=== PATIENT | male | born 1960 | race Caucasian/White ===

== ENCOUNTER 2021-10-25 13:37 | Observation (INO) | payer MEDICAID, SELFPAY ==
[2021-10-25] VITALS (12 sets, daily range): BP systolic 123–159; BP diastolic 78–102; PULSE 47–62; RESP 15–20; TEMP 36.1–37; O2SAT 98–100; BMI 30.9; BMI 29.2
--- NOTE | 2021-10-25 13:44 | EKG12_ITS ---
Test Reason : Blood Pressure : / mmHG Vent. Rate : 057 BPM Atrial Rate : 057 BPM P-R Int : 176 ms QRS Dur : 110 ms QT Int : 436 ms P-R-T Axes : 022 018 054 degrees QTc Int : 424 ms Sinus bradycardia Otherwise normal ECG Confirmed by ALEJANDRO HEAD, JD ([id number]), continuity editor SHAHID RENEE ([id number]) on 10/29/2021 8:00:59 AM Referred By: Confirmed By:JD ALLEN MD
--- NOTE | 2021-10-25 13:44 | CT_ITS ---
We are attempting to reach an attending provider to discuss findings. An addendum with communication details will be sent when the communication is complete. STUDY: CT HEAD STROKE PROTOCOL W/O CONTRAST INJECTION REASON FOR EXAM: Male, 60 years old. Neuro deficit, acute, stroke suspected RADIATION DOSAGE (If Supplied By Facility): CTDIvol = ( ) mGy, DLP = ( ) mGycm TECHNIQUE: Transaxial CT imaging of the brain was performed without administration of intravenous contrast material. Individualized dose optimization techniques were used for this CT. COMPARISON: No relevant priors. FINDINGS: Normal soft tissue structures. There is hyperostosis frontalis internus. There is mild cerebral atrophy with widening of the extra-axial spaces and ventricular dilatation. There are areas of decreased attenuation within the white matter tracts of the supratentorial brain, consistent with microvascular disease changes. Normal basal ganglia and thalami. Normal brainstem. Normal cerebellum. There is no intracranial hemorrhage. There are no findings of an acute ischemic infarction. Normal visualized paranasal sinuses. ASPECT score: CT/STROKE Brain/Head without Cont IMPRESSION: Chronic involutional changes of the brain. Electronically Signed: Ruben Dan MD at 13:59 EDT ,
--- NOTE | 2021-10-25 13:44 | RAD_ITS ---
STUDY: X-RAY CHEST REASON FOR EXAM: Male, 60 years old. Neuro deficit, acute, stroke suspected TECHNIQUE: Single AP portable view of the chest. COMPARISON: None. FINDINGS: Focal alveolar opacity in lower right lung worrisome for pneumonia. There is no demonstrated pleural abnormality. Normal size heart. Normal mediastinum and latonya. Normal visualized pulmonary arteries. Normal visualized aortic arch and descending thoracic aorta. Normal visualized thoracic spine. Normal visualized ribs, clavicles, and shoulders. There is no demonstrated abnormality of the visualized soft tissue structures of the upper abdomen. RAD/Chest 1 View IMPRESSION: Focal right lower lobe pneumonia. Electronically Signed: Ruben Dan MD at 14:47 EDT ,
--- NOTE | 2021-10-25 13:45 | ED.RN ---
Per Dr Haywood pt is not a candidate for TPA or any other interventions as it has been greater than 24 hours.
--- NOTE | 2021-10-25 13:56 | ED.VIS.STROK ---
HPI History of Present Illness Chief Complaint: Neuro S/Sx Narrative Narrative: Patient presents with 24 hours or more of generalized weakness but also worse on the right side where he has had a prior right-sided stroke. He was also found to have a right-sided facial droop, he tells me that he normally does not have a facial droop. No reported fevers or chills. He is arrives from an ECF. He is denying any chest pain. No shortness of breath. He is denying any confusion. [facility] Medical History (Updated 10/25/21 @ 14:[address] Mac Haywood MD) Diabetes High cholesterol History of stroke Hx of bipolar disorder Hypertension Schizophrenia Allergy/AdvReac Type Severity Reaction Status Date / Time No Known Allergies Allergy Verified 10/25/21 13:58 Surgical History History of ankle surgery Social History Smoking Status: Never smoker ROS ROS ED ROS Narrative Past medical history: Reviewed in his [employer] paperwork, he has not been in our computer system in the past. Medications: Reviewed and ECF paper Social history: Noncontributory Review of systems: All systems negative except as indicated General: No fever. Some generalized weakness Eyes: No visual changes ENT: No upper airway congestion, normal voice Neck: No neck pain Cardiovascular: No chest pain Respiratory: No shortness of breath or cough Gastrointestinal: No abdominal pain, nausea vomiting or diarrhea Genitourinary: No dysuria Musculoskeletal: Denies myalgias no difficulty with ambulation Skin: No rash Neurological: As in HPI Psych: No recent behavioral changes Hematologic: No easy bleeding or easy bruising EXAM Physical Exam Narrative Exam Narrative: Physical exam General: Patient appears chronically ill Head: Normocephalic, Atraumatic Eyes: Conjunctiva not pale ENT: Slightly dry mucous membranes Neck: Supple, Nontender, No lymphadenopathy Cardiovascular: Regular rate, Regular rhythm Respiratory: No distress, CTA bilaterally Abdomen: Soft, Nontender, Nondistended Back: Nontender, Normal Inspection. Negative for: CVA tenderness Extremities: Nontender, No edema Skin: Normal color, No rash Neurological: Alert, he is oriented x3 and follows directions. Otherwise see NIH stroke scale below. Psychological: Normal affect Const Vital Signs: 10/25/21 13:40 10/25/21 13:49 10/25/21 14:14 Temperature 98.6 F Temperature Source Oral Pulse Rate 62 52 L Respiratory Rate 16 Blood Pressure 156/78 H 141/78 H Blood Pressure Mean 104 99 Pulse Ox 98 99 100 Oxygen Delivery Method Room Air Room Air 10/25/21 14:39 Temperature Temperature Source Pulse Rate 49 L Respiratory Rate 16 Blood Pressure 136/94 H Blood Pressure Mean 108 Pulse Ox 100 Oxygen Delivery Method STROKE Vital Signs/Narrative: Vital Signs Temp Pulse Resp BP Pulse Ox 10/25/21 14:39 49 L 16 136/94 H 100 10/25/21 14:14 52 L 141/78 H 100 10/25/21 13:49 99 10/25/21 13:40 98.6 F 62 16 156/78 H 98 NIHSS Initial: 1a Level of Consciousness: 0 1b LOC Questions (Score 2 if aphasic/stupor): 0 1c LOC Commands (Only score 1st attempt): 0 2 Best Gaze (If aphasic, use reflexive mvmts.): 0 3 Visual: 0 4 Facial Palsy: 2 5 Motor Arm Right (UN = amputation/fusion): 1 5 Motor Arm Left: 1 6 Motor Leg Right: 2 6 Motor Leg Left: 1 7 Limb ataxia (Only + if out of proportion): 0 8 Sensory (Aphasia/stupor=0 or 1, coma=2): 0 9 Best Language: 0 10 Dysarthria (mute, coma=2, intubated=UN): 1 11 Extinction and Inattention (only scored if +): 0 Total Score: 8 MDM [facility] Lab Data Labs: Laboratory Results - last 24 hr 10/25/21 10/25/21 10/25/21 13:45 13:45 13:45 WBC 3.1 L RBC 4.10 L Hgb 12.9 L Hct 38.8 L MCV 94.6 H MCH 31.5 MCHC 33.2 RDW Std Deviation 45.4 H RDW Coeff of Joshua 13.1 Plt Count 102 L MPV 10.4 Immature Gran % (Auto) 0.300 Neut % (Auto) 45.3 L Lymph % (Auto) 41.0 [place] % (Auto) 11.4 H Eos % (Auto) 1.3 Baso % (Auto) 0.7 Absolute Neuts (auto) 1.4 L Absolute Lymphs (auto) 1.26 Nucleated RBC % 0 PT 15.0 H INR 1.2 APTT 32.5 Sodium 138 Potassium 4.0 Chloride 107 Carbon Dioxide 27.0 Anion Gap 4 L BUN 17 Creatinine 0.94 Estim Creat Clear Calc 95.95 Est GFR (MDRD) Af Amer 104 Est GFR (MDRD) Non-Af 86 BUN/Creatinine Ratio 18.0 Glucose 93 Calcium 9.5 Troponin I High Sens 7 Radiography Diagnostic Testing: Clinical Impression(s) from Imaging Studies Brain CT 10/25/21 13:44 IMPRESSION: Chronic involutional changes of the brain. Electronically Signed: Ruben Dan MD at 13:59 EDT , ADDENDUM: 10/25/21 1418 IMPRESSION: Chronic involutional changes of the brain. N.B. : The above Results were Read Back by Ruben Dan MD to Mac Haywood MD, and understanding confirmed on 10/25/2021 14:11:44 (ET). Electronically Signed: Ruben Dan MD at 13:59 EDT , EKG Initial EKG: Comments: Sinus rhythm with a rate of 57. Normal GA and QTc intervals. No ischemic changes seen. Interpreted by emergency Dr. Treatment and Re-Evaluation Narrative: Patient continues have no neurological symptoms because his symptoms have been greater than 24 hours he does not meet criteria for either endovascular therapy or tPA. Therefore a CT angiogram was not done in the emergency department. Patient will need an MRI and patient and further evaluation and treatment. He has remained hemodynamically stable with a slightly elevated blood pressure but it is acceptable given the stroke condition. Discharge Plan Triage Chief Complaint: Neuro S/Sx ED Provider: Mac Haywood Dx/Rx/DC Orders Clinical Impression: CVA (cerebral vascular accident), Facial droop Primary Care Provider: Tevin Prather Referrals: Tevin Prather MD [Primary Care Provider] - Disposition Disposition: Acute Care Hospital [facility]
[2021-10-25 14:04] LABS: Absolute Lymphocyte Count 1.26 X10^3/uL (0.83-4.51); Absolute Neutrophil Count 1.4 X10^3/uL (2.0-7.7); Basophil# 0.02 X10^3/uL; Basophil% 0.7 % (0-1); Eosinophil# 0.04 X10^3/uL; Eosinophils% 1.3 % (0-5); Hematocrit 38.8 % (40-54); Hemoglobin 12.9 g/dL (13.0-16.5); Lymphocyte # 1.26 X10^3/ul (0.83-4.51); Mean Corp Hgb Conc 33.2 g/dL (32-36); Mean Corpuscular Hgb 31.5 pg (27.0-32.0); Mean Corpuscular Volume 94.6 fL (80-94); Mean Platelet Vol. 10.4 fl (6.2-12.0); Monocyte# 0.35 X10^3/uL; Monocyte% 11.4 % (0-10); NRBC Flagged by Analyzer 0 % (0-5); Neutrophil # 1.39 X10^3/uL (2.7-7.7); Neutrophil % 45.3 % (47-70); Platelet Count 102 K/mm3 (150-450); RBC Distribution Width CV 13.1 % (11.6-14.6); RBC Distribution Width SD 45.4 fl (35.1-43.9); White Blood Count 3.1 K/mm3 (4.4-11.0)
[2021-10-25 14:14] LABS: International Normalized Ratio 1.2
[2021-10-25 14:15] LABS: Partial Thromboplast Time 32.5 Seconds (24.1-36.2)
[2021-10-25 14:18] LABS: Anion Gap 4 (5-15); BUN 17 mg/dL (7-18); Calcium,Total 9.5 mg/dL (8.5-10.1); Chloride 107 mmol/L (98-107); Creatinine, Serum 0.94 mg/dL (0.70-1.30); EST Glomerular Filtration Rate 86 mL/min (>60); Est Glom Filt Rate - Afr Amer 104 mL/min (>60); Estimated Creatinine Clearance 95.95 ml/min; Glucose 93 mg/dL (74-106); Sodium Level 138 mmol/L (136-145); Troponin-I HS 7 pg/mL (3.0-78.0)
--- NOTE | 2021-10-25 14:20 | CHAPLAIN ---
Type of Pastoral Visit ___ Initial Visit ___ Follow-up Visit ___ On-call Visit ___ General Patient Visit ___ Spiritual Assessment ___ Family Conference ___ Bereavement _x__ Rapid Response ___ Code Blue ___ Other (describe below) Pastoral Care Referral From ___ Patient ___ Family ___ Nurse ___ Physician ___ Consumer Attorney ___ Circular Gang Saw Operator _x__ Other (describe below) Sacrament/Intervention ___ Active listening ___ Anointing ___ Adventism ___ Bereavement ___ Communion ___ Dorcas exploration ___ ___ Life review ___ Prayer ___ Reconciliation ___ Sacrament of Sick _x__ Supportive presence ___ Wedding ___ Other (describe below) Pastoral Comments came to ED for stroke alert and the arrival of patient by squad; pt is from an [facility] and does not have family available or coming to the hospital; pt was treated by medical team; presence for support but no other interventions at this time
--- NOTE | 2021-10-25 14:57 | HP.PCM.HOS_ITS ---
HPI - General General Date of Admission: 10/25/21 Date of Service: 10/25/21 Chief Complaint: Right sided weakness - 2 days HPI Narrative SANTOS WOODS, is a 60 M who presents with the above. Patient has a PMHx of CVA 2-3 years ago, with minimal right sided weakness, hypertension, hyperlipidemia, seizure disorder, schizoaffective disorder, resident in an assisted living facility who comes with right sided weakness. He admits to slurred speech and facial droop. Denies any numbness or tingling. Vitals in the ED showed BP 156/78, HR 62, RR 16, Temp 98.6F, Spo2 98%. WBC 3.1, Hb 12.9, Plt 102, INR 1.2. BMP was unremarkable. CT brain showed chronic involutional changes. Chest X-ray showed focal right lower lobe pneumonia. [facility] Medical History Diabetes High cholesterol History of stroke Hx of bipolar disorder Hypertension Schizophrenia Home Medications acetaminophen 650 mg tablet,extended release (Arthritis Pain Relief (acetaminophen) ER) 1,300 mg PO BID PAIN 10/25/21 [History Last Taken 10/25/21] amlodipine 5 mg tablet 5 mg PO DAILY BP 10/25/21 [History Last Taken 10/25/21] apixaban 5 mg tablet (Eliquis) 5 mg PO BID BLOOD THINNER 10/25/21 [History Last Taken 10/25/21] atorvastatin 40 mg tablet 40 mg PO QHS CHOLESTEROL 10/25/21 [History Last Taken 10/24/21] benztropine 1 mg tablet 1 mg PO BID MOOD 10/25/21 [History Last Taken 10/25/21] cholecalciferol (vitamin D3) 50 mcg (2,000 unit) tablet 50 mcg PO DAILY SUPPLEMENT 10/25/21 [History Last Taken 10/25/21] citalopram 20 mg tablet 20 mg PO QHS DEPRESSION 10/25/21 [History Last Taken 10/24/21] divalproex 500 mg tablet,extended release 24 hr 1,000 mg PO QHS SEIZURES 10/25/21 [History Last Taken 10/24/21] divalproex 500 mg tablet,extended release 24 hr 500 mg PO DAILY SEIZURES 10/25/21 [History Last Taken 10/25/21] docusate sodium 100 mg capsule 100 mg PO BID STOOL SOFTNER 10/25/21 [History Last Taken 10/25/21] fenofibrate 54 mg tablet 54 mg PO DAILY CHOLESTEROL 10/25/21 [History Last Taken 10/25/21] latanoprost 0.005 % eye drops 1 drp EACH EYE QHS GLUCOMA 10/25/21 [History Last Taken 10/24/21] olanzapine 10 mg tablet 10 mg PO QHS MOOD 10/25/21 [History Last Taken 10/24/21] olanzapine 20 mg tablet 20 mg PO QHS MOOD 10/25/21 [History Last Taken 10/24/21] oxcarbazepine 300 mg tablet 300 mg PO BID SEZIURES 10/25/21 [History Last Taken 10/25/21] tamsulosin 0.4 mg capsule 0.4 mg PO QHS PROSTATE 10/25/21 [History Last Taken 10/24/21] Allergy/AdvReac Type Severity Reaction Status Date / Time No Known Allergies Allergy Verified 10/25/21 13:58 Family History Mother Heart disease Father Heart disease Surgical History History of ankle surgery Social History housing: assisted living facility Smoking Status: Never smoker alcohol intake: never substance use type: does not use ROS ROS Narrative Constitutional: Denies: Anorexia, Chills, Fever, Night Sweats, Weight Change Eyes: Denies: Blurred vision, Cataracts, Conjunctivae Inflammation, Pain, Redness, Vision Change HEENT: Denies: Difficulty Hearing, Difficulty Swallowing, Head Aches, Hearing Changes, Sinus Congestion, Sinus Drainage Cardiovascular: Denies: Chest Pain, Orthopnea, Palpitations Respiratory: Denies: Cough, Shortness of breath at rest, Sputum production Gastrointestinal: Denies: Abdominal Pain, Nausea, Vomiting Genitourinary: Denies: Dysuria Musculoskeletal: Denies: Joint Pain, Joint stiffness, Joint swelling, Joint Tenderness Skin: Denies: Rash, Wounds Neurological: See HPI Vital Signs Vital Signs Vital Signs: 10/25/21 13:40 10/25/21 13:49 10/25/21 14:14 Temperature 98.6 F Temperature Source Oral Pulse Rate 62 52 L Respiratory Rate 16 Blood Pressure 156/78 H 141/78 H Blood Pressure Mean 104 99 Pulse Ox 98 99 100 Oxygen Delivery Method Room Air Room Air 10/25/21 14:39 10/25/21 14:51 Temperature 98 F Temperature Source Temporal Pulse Rate 49 L 52 L Respiratory Rate 16 16 Blood Pressure 136/94 H 148/78 H Blood Pressure Mean 108 101 Pulse Ox 100 100 Oxygen Delivery Method Room Air Weight Weight: 109.4 kg Body Mass Index (BMI) 30.9 Physical Exam Narrative Physical exam: General: Alert, Oriented x3, cooperative, HEENT: Atraumatic Oral: Moist Mucosa Neck: Supple Lungs: Clear to auscultation Cardiovascular: HS I+II, regular, no murmurs Abdomen: Bowel Sounds Present, Soft, Non Tender Extremities: No edema Skin: No rashes, No breakdown Neurological: Slight right facial droop, slurred speech, weakness in both legs (worse in the left, chronic) Psych/Mental Status: Appropriate Results Lab / Micro Data Result Diagrams: 10/25/21 13:45 10/25/21 13:45 Labs: Laboratory Results - last 24 hr 10/25/21 13:45: WBC 3.1 L, RBC 4.10 L, Hgb 12.9 L, Hct 38.8 L, MCV 94.6 H, MCH 31.5, MCHC 33.2, RDW Std Deviation 45.4 H, RDW Coeff of Joshua 13.1, Plt Count 102 L, MPV 10.4, Immature Gran % (Auto) 0.300, Neut % (Auto) 45.3 L, Lymph % (Auto) 41.0, [place] % (Auto) 11.4 H, Eos % (Auto) 1.3, Baso % (Auto) 0.7, Absolute Neuts (auto) 1.4 L, Absolute Lymphs (auto) 1.26, Nucleated RBC % 0 10/25/21 13:45: PT 15.0 H, INR 1.2, APTT 32.5 10/25/21 13:45: Sodium 138, Potassium 4.0, Chloride 107, Carbon Dioxide 27.0, Anion Gap 4 L, BUN 17, Creatinine 0.94, Estim Creat Clear Calc 95.95, Est GFR (MDRD) Af Amer 104, Est GFR (MDRD) Non-Af 86, BUN/Creatinine Ratio 18.0, Glucose 93, Calcium 9.5, Troponin I High Sens [address] 10/25/21 13:44 IMPRESSION: Chronic involutional changes of the brain. Electronically Signed: Santos Dan MD at 13:59 EDT , ADDENDUM: 10/25/21 1418 IMPRESSION: Chronic involutional changes of the brain. N.B. : The above Results were Read Back by Santos Dan MD to Mac Haywood MD, and understanding confirmed on 10/25/2021 14:11:44 (ET). Electronically Signed: Santos Dan MD at 13:59 EDT , Chest X-Ray 10/25/21 13:44 IMPRESSION: Focal right lower lobe pneumonia. Electronically Signed: Santos Dan MD at 14:47 EDT , Assessment & Plan Assessment/Plan (1) CVA (cerebral vascular accident): PLAN: Plan 1. Acute onset of right-sided weakness/slurred speech likely secondary to TIA/CVA Patient with history of stroke Admitting NIHSS score was 3, not a TPA candidate; last known normal was 2-3 days ago dmit to PCU, monitor on telemetry, MRI of the brain, MRA of the head and neck 2D echo, lipid profile in am, HbA1c 2. Paroxysmal atrial fibrillation, in normal sinus rhythm, continue apixaban 3. Hypertension, controlled, hold amlodipine to allow for permissive hypertension 4. Seizure disorder, continue on valproic acid, oxcarbazepine 5. Hyperlipidemia, continue fenofibrate and statin 6. Schizoaffective disorder, continue benztropine, citalopram, olanzapine 7. BPH, continue on flomax 8. DVT PPx- on apixaban Charges/Coding Visit Charges OBSV E&M: 59613 Initial observation care L3
--- NOTE | 2021-10-25 15:05 | CM.ED ---
SW Note Referral Source: Stroke Alert Referral Reason: Stroke Alert SW responded to stroke alert. No family present. Patient is from SNF in [place] per staff. SW met with patient. Patient is from rest home in [place] and reports he lived there for 7 1/2 years. Patient said that he is from [facility]. Plan is for patient to be admitted to acute. SW remains available if needs arise. Plan: Acute Michelle OLSEN
[2021-10-25] MEDS: Ceftriaxone 1 GM/50 ML BAG IV ×2 (15:20→22:09)
--- NOTE | 2021-10-25 16:20 | MRI_ITS ---
rScriptor Unformatted Report Gender: Male Age: 60 years Exam: MR Brain W/O Contrast Comparison: History: neuro deficit, acute stroke suspected FINDINGS: No restricted diffusion. No evidence of acute CVA. Mild cerebral volume loss. Only slight chronic parenchymal changes on inversion recovery images The signal voids of the dural venous sinuses and major [place] of Ren vessels appear unremarkable. Slight mucosal thickening in multiple ethmoid air cells. Right nneka bullosa and left nasal septal deviation. MRI/Brain without Contrast IMPRESSION: No acute abnormality. Electronically Signed: Melissa Salmeron MD at 6:02 EDT ,
--- NOTE | 2021-10-25 16:20 | ECHOCS_ITS ---
Reason For Study: TIA/CVA Procedure This was a 2D Doppler, Color Flow transthoracic echocardiogram. The study was technically difficult. Contrast injection was performed. Exam performed portable in patient room. Left Ventricle Normal left ventricle. The estimated ejection fraction is 55-60 %. Right Ventricle Normal right ventricle. Normal systolic function. Atria Normal left atrium. Normal right atrium. Mitral Valve The mitral valve is structurally normal. No prolapse or stenosis seen. Trivial mitral valve insufficiency. Tricuspid Valve Normal tricuspid valve. Trivial tricuspid valve insufficiency. Aortic Valve Normal aortic valve. Pulmonic Valve The pulmonic valve is not well visualized. Great Vessels Normal aortic root. Pericardium/Pleural No pericardial effusion. Medication Diluted definity 2ml given slow IV push to enhance endocardial definition. Performed a rapid injection of agitated mix of 9 cc saline and 1cc air to assess for atrial septal defect. MMode/2D Measurements & Calculations SV(MOD-sp4): 138.2 ml SV(sp4-el): 138.4 ml LVAd ap4: 50.1 cm2 LVLd ap4: 10.2 cm EDV(MOD-sp4): 205.9 ml EDV(sp4-el): 207.9 ml LVAs ap4: 24.7 cm2 LVLs ap4: 7.5 cm ESV(MOD-sp4): 67.7 ml ESV(sp4-el): 69.5 ml EF(MOD-sp4): 67.1 % EF(sp4-el): 66.6 % Doppler Measurements & Calculations MV E max mikel: 55.6 cm/sec Lat Peak E' Mikel: 15.2 cm/sec Med Peak E' Mikel: 6.3 cm/sec MV A max mikel: 60.7 cm/sec E/E' lat: 3.7 E/E' med: 8.8 MV E/A: 0.92 Ao V2 max: 128.1 cm/sec LV V1 max: 124.5 cm/sec PA V2 max: 87.6 cm/sec Ao max P.6 mmHg LV V1 max P.2 mmHg ECHO/Echo Complete W/ Contrast Interpretation Summary The estimated ejection fraction is 55-60 %. Normal LV systolic function Contrast echo used Ordering Physician: Flora Mtz Referring Physician: Tevin Prather Performed By: Crys Fernandez RCS
--- NOTE | 2021-10-25 16:20 | MRI_ITS ---
EXAM: MR ANGIOGRAPHY NECK WITHOUT AND WITH INTRAVENOUS CONTRAST CLINICAL INDICATION: neuro deficit, acute stroke suspected TECHNIQUE: Routine carotid MR angiogram protocol was performed without and with intravenous contrast. 3D reconstructions were reviewed. Nascet criteria using the distal ICAs for comparison were used for evaluation of stenoses. This report was created using Nuji report generation technology. RADIATION DOSE: CTDIvol = mGy, DLP = mGy-cmContrast: 19ml Dotarem via IV COMPARISON: None. FINDINGS: RIGHT COMMON CAROTID ARTERY: Unremarkable. No occlusion or significant stenosis. No dissection. RIGHT INTERNAL CAROTID ARTERY: Unremarkable. Extracranial segment is patent with no occlusion or significant stenosis. No dissection. RIGHT EXTERNAL CAROTID ARTERY: Unremarkable. No occlusion. RIGHT VERTEBRAL ARTERY: Unremarkable. No occlusion or significant stenosis. No dissection. LEFT COMMON CAROTID ARTERY: Unremarkable. No occlusion or significant stenosis. No dissection. LEFT INTERNAL CAROTID ARTERY: Unremarkable. Extracranial segment is patent with no occlusion or significant stenosis. No dissection. LEFT EXTERNAL CAROTID ARTERY: Unremarkable. No occlusion. LEFT VERTEBRAL ARTERY: Unremarkable. No occlusion or significant stenosis. No dissection. GREAT VESSELS OF AORTIC ARCH: Unremarkable. No significant stenosis. CAROTID STENOSIS REFERENCE USING NASCET CRITERIA: % ICA stenosis = (1 - narrowest ICA diameter/diameter of distal cervical ICA) x 100. Mild - <50% stenosis. Moderate - 50-69% stenosis. Severe - 70-94% stenosis. Near occlusion - 95-99% stenosis. Occluded - 100% stenosis. MRI/MRA Neck WITH and W/O Contrast IMPRESSION: Unremarkable MRA neck. Electronically Signed: Melissa Salmeron MD at 6:06 EDT ,
--- NOTE | 2021-10-25 16:20 | MRI_ITS ---
EXAM: MR ANGIOGRAPHY HEAD WITHOUT INTRAVENOUS CONTRAST CLINICAL INDICATION: neuro deficit, acute stroke suspected TECHNIQUE: Routine [place] of Ren/brain 3D time of flight MR angiogram protocol was performed without intravenous contrast. This report was created using [employer] report Reality Digital technology. COMPARISON: None. FINDINGS: RIGHT INTERNAL CAROTID ARTERY: There is calcified plaque formation of the right cavernous carotid artery, with a mild stenosis (less than 50%). ALL ABOVE CRITERIA BY NASCET. No aneurysm. 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 There is hypoplastic development of the right A2 segments of the anterior cerebral artery. No significant stenosis at the visualized segments. Anterior communicating artery is present. No aneurysm. RIGHT MIDDLE CEREBRAL ARTERY: Unremarkable. No significant stenosis at the visualized segments. No aneurysm. RIGHT POSTERIOR CEREBRAL ARTERY: Unremarkable. No significant stenosis at the visualized segments. No aneurysm. RIGHT VERTEBRAL ARTERY: Unremarkable as visualized. No significant stenosis at the intradural/visualized segments. No aneurysm. LEFT INTERNAL CAROTID ARTERY: There is calcified plaque formation of the left cavernous carotid artery, with a mild stenosis (less than 50%). ALL ABOVE CRITERIA BY NASCET. No aneurysm. LEFT ANTERIOR CEREBRAL ARTERY: Unremarkable. No significant stenosis at the visualized segments. Anterior communicating artery is present. No aneurysm. LEFT MIDDLE CEREBRAL ARTERY: Unremarkable. No significant stenosis at the visualized segments. No aneurysm. LEFT POSTERIOR CEREBRAL ARTERY: Unremarkable. No significant stenosis at the visualized segments. No aneurysm. LEFT VERTEBRAL ARTERY: Unremarkable as visualized. No significant stenosis at the intradural/visualized segments. No aneurysm. BASILAR ARTERY: Unremarkable. No significant stenosis. No aneurysm. OTHER VASCULATURE: See above. MRI/MRA Head ONLY without Contrast IMPRESSION: 1. There is calcified plaque formation of the right cavernous carotid artery, with a mild stenosis (less than 50%). ALL ABOVE CRITERIA BY NASCET. 2. There is calcified plaque formation of the left cavernous carotid artery, with a mild stenosis (less than 50%). ALL ABOVE CRITERIA BY NASCET. 3. 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 4. There is hypoplastic development of the right A2 segments of the anterior cerebral artery. Electronically Signed: Uziel Sethi MD at 20:36 EDT ,
[2021-10-25 17:08] LABS: Hemoglobin A1c 4.9 % (3.8-5.6)
[2021-10-25] MEDS: 0.9% Normal Saline 1,000 ML 75 ML IV (17:17)
[2021-10-25 17:52] LABS: Troponin-I HS 9 pg/mL (3.0-78.0)
[2021-10-25 20:23] LABS: Troponin-I HS 14 pg/mL (3.0-78.0)
[2021-10-25] MEDS: Benztropine 2 MG Tablet 1 MG PO (22:11)
[2021-10-25] MEDS: Docusate Sodium 100 MG Capsule PO (22:13)
[2021-10-25] MEDS: APIXABAN 5 MG TABLET PO (22:14)
[2021-10-25] MEDS: Divalproex (ER) 500 MG Tablet 1000 MG PO (22:15)
[2021-10-25] MEDS: Acetaminophen 500 MG Tablet 1000 MG PO (22:17)
[2021-10-25] MEDS: Tamsulosin HCl 0.4 MG Capsule PO (22:19)
[2021-10-25] MEDS: Famotidine 20 MG Tablet PO (22:47)
[2021-10-25] MEDS: Atorvastatin Calcium 80 MG Tablet PO (22:48)
[2021-10-25] MEDS: Latanoprost 0.005% 1 Bottle 1 DRP EACH EYE (22:49)
[2021-10-25] MEDS: OXcarbazepine 300 MG Tablet PO (22:49)
[2021-10-25] MEDS: OLANZapine 10 MG Tablet 30 MG PO (22:59)
[2021-10-25] MEDS: Citalopram 20 MG Tablet PO (22:59)
[2021-10-26] VITALS (11 sets, daily range): BP systolic 120–160; BP diastolic 72–85; PULSE 47–61; RESP 14–18; TEMP 36.6–36.7; O2SAT 50–100; BMI 29.2
[2021-10-26 06:07] LABS: Absolute Lymphocyte Count 2.11 X10^3/uL (0.83-4.51); Absolute Neutrophil Count 1.4 X10^3/uL (2.0-7.7); Basophil# 0.02 X10^3/uL; Basophil% 0.5 % (0-1); Eosinophil# 0.07 X10^3/uL; Eosinophils% 1.7 % (0-5); Hematocrit 37.9 % (40-54); Hemoglobin 12.4 g/dL (13.0-16.5); Lymphocyte # 2.11 X10^3/ul (0.83-4.51); Mean Corp Hgb Conc 32.7 g/dL (32-36); Mean Corpuscular Hgb 31.2 pg (27.0-32.0); Mean Corpuscular Volume 95.2 fL (80-94); Mean Platelet Vol. 10.3 fl (6.2-12.0); Monocyte# 0.41 X10^3/uL; Monocyte% 10.1 % (0-10); NRBC Flagged by Analyzer 0 % (0-5); Neutrophil # 1.41 X10^3/uL (2.7-7.7); Neutrophil % 34.7 % (47-70); POSITIVE COUNT YES; Platelet Count 97 K/mm3 (150-450); RBC Distribution Width CV 13.1 % (11.6-14.6); RBC Distribution Width SD 46.4 fl (35.1-43.9); Red Blood Count 3.98 M/mm3 (4.6-6.2); White Blood Count 4.1 K/mm3 (4.4-11.0)
[2021-10-26 06:35] LABS: AST(SGOT) 37 U/L (15-37); Alanine Aminotransfer ALT/SGPT 15 U/L (16-61); Albumin, Serum 2.9 g/dL (3.2-5.0); Alkaline Phosphatase 52 U/L (45-117); Anion Gap 6 (5-15); BUN 14 mg/dL (7-18); BUN/Creat Ratio 20.3 RATIO (10-20); Calcium,Total 9.3 mg/dL (8.5-10.1); Chloride 104 mmol/L (98-107); Cholesterol 92 mg/dL (200); Creatinine, Serum 0.69 mg/dL (0.70-1.30); EST Glomerular Filtration Rate 124 mL/min (>60); Est Glom Filt Rate - Afr Amer 150 mL/min (>60); Estimated Creatinine Clearance 130.71 ml/min; Globulin 2.9 g/dL (2.2-4.2); Glucose 75 mg/dL (74-106); High Density Lipoprotein 61 mg/dL; Protein, Total 5.8 g/dL (6.4-8.2); Sodium Level 135 mmol/L (136-145); Triglycerides 41 mg/dL; Very Low Density Lipoprotein 8 mg/dL (5-40)
[2021-10-26] MEDS: Acetaminophen 500 MG Tablet 1000 MG PO ×3 (06:41→21:36)
[2021-10-26] MEDS: Ceftriaxone 1 GM/50 ML BAG IV ×2 (08:24→21:38)
[2021-10-26] MEDS: Docusate Sodium 100 MG Capsule PO ×2 (08:25→21:36)
[2021-10-26] MEDS: Benztropine 2 MG Tablet 1 MG PO ×2 (08:25→21:37)
[2021-10-26] MEDS: Aspirin 81 MG TAB.CHEW PO (08:27)
[2021-10-26] MEDS: APIXABAN 5 MG TABLET PO ×2 (08:28→21:36)
[2021-10-26] MEDS: Famotidine 20 MG Tablet PO ×2 (08:31→21:36)
[2021-10-26] MEDS: OXcarbazepine 300 MG Tablet PO ×2 (08:31→21:36)
[2021-10-26] MEDS: Cholecalciferol (VIT D3) 25 MCG TABLET (1,000 UNITS) 50 MCG PO (08:32)
[2021-10-26] MEDS: Fenofibrate 48 MG Tablet PO (08:33)
--- NOTE | 2021-10-26 12:17 | TELEMED_ITS ---
[facility] has confirmed receipt of a request for visit. This document confirms receipt of the order initiating the consult. To find the results of the consultation, please view the patient's reports for the scanned Telemed Consult.
--- NOTE | 2021-10-26 12:30 | CASEMGMT ---
MASOUD Note MASOUD called [facility]. MASOUD spoke to JOSSELIN Rahman. She advised that the facility is assisted living. Per Lacey patient can return to assisted living facility at discharge. MASOUD updated tin can feederLAUREN OLSEN
--- NOTE | 2021-10-26 13:06 | CM.ED ---
MASOUD Note MASOUD and MASOUD Lemon met with patient. He indicated he worked with PT/OT today. Patient was advised that the OT recommended home health at discharge and patient was receptive to home health PT/OT. Patient said that he had PT/OT in [place] after his previous stroke. Patient was provided with list of home health agencies and advised that when he returns to his assisted living facility that the MD can order home health for him. Patient verbalized understanding. MASOUD asked patient if he had any concerns with the plan for home PT/OT and he said no. No further issues or concerns voiced. SW remains available. Plan: Return to [facility]. Patient provided with list of home health agencies. Michelle OLSEN
--- NOTE | 2021-10-26 13:28 | CM.ED ---
PT advised patient would benefit from home health PT/OT. MASOUD called JOSSELIN Rahman at [facility] and advised that the recommendation is for patient to have home health PT/OT and that patient's MD can order that when patient returns to the assisted living facility. MASOUD advised that this specification writer also provided patient with list of home health agencies. Lacey verbalized understanding. Of note, per Lacey no office staff is available on weekend. Michelle OLSEN
[2021-10-26] MEDS: Tamsulosin HCl 0.4 MG Capsule PO (21:36)
[2021-10-26] MEDS: Atorvastatin Calcium 80 MG Tablet PO (21:36)
[2021-10-26] MEDS: Divalproex (ER) 500 MG Tablet 1000 MG PO (21:36)
[2021-10-26] MEDS: OLANZapine 10 MG Tablet 30 MG PO (21:37)
[2021-10-26] MEDS: Citalopram 20 MG Tablet PO (21:37)
[2021-10-26] MEDS: Latanoprost 0.005% 1 Bottle 1 DRP EACH EYE (21:38)
[2021-10-27] VITALS (10 sets, daily range): BP systolic 127–149; BP diastolic 66–84; PULSE 44–56; RESP 16–18; TEMP 35.9–36.9; O2SAT 96–100; BMI 29.2
[2021-10-27] MEDS: Acetaminophen 500 MG Tablet 1000 MG PO ×3 (05:30→21:09)
[2021-10-27 06:22] LABS: Absolute Lymphocyte Count 1.94 X10^3/uL (0.83-4.51); Absolute Neutrophil Count 1.4 X10^3/uL (2.0-7.7); Basophil# 0.04 X10^3/uL; Eosinophil# 0.18 X10^3/uL; Eosinophils% 4.4 % (0-5); Hematocrit 38.4 % (40-54); Hemoglobin 12.9 g/dL (13.0-16.5); Lymphocyte # 1.94 X10^3/ul (0.83-4.51); Lymphocyte % 47.8 % (19-41); Mean Corp Hgb Conc 33.6 g/dL (32-36); Mean Corpuscular Hgb 31.3 pg (27.0-32.0); Mean Corpuscular Volume 93.2 fL (80-94); Mean Platelet Vol. 9.8 fl (6.2-12.0); Monocyte% 12.3 % (0-10); NRBC Flagged by Analyzer 0 % (0-5); Neutrophil # 1.35 X10^3/uL (2.7-7.7); Neutrophil % 33.3 % (47-70); POSITIVE COUNT YES; Platelet Count 98 K/mm3 (150-450); RBC Distribution Width SD 44.5 fl (35.1-43.9); Red Blood Count 4.12 M/mm3 (4.6-6.2); White Blood Count 4.1 K/mm3 (4.4-11.0)
[2021-10-27 06:47] LABS: ALB/GLOB Ratio 0.9 RATIO (0.9-2.4); AST(SGOT) 35 U/L (15-37); Alanine Aminotransfer ALT/SGPT 15 U/L (16-61); Albumin, Serum 2.8 g/dL (3.2-5.0); Alkaline Phosphatase 53 U/L (45-117); Anion Gap 6 (5-15); BUN 13 mg/dL (7-18); BUN/Creat Ratio 18.4 RATIO (10-20); Calcium,Total 9.1 mg/dL (8.5-10.1); Chloride 101 mmol/L (98-107); Creatinine, Serum 0.71 mg/dL (0.70-1.30); EST Glomerular Filtration Rate 120 mL/min (>60); Est Glom Filt Rate - Afr Amer 146 mL/min (>60); Estimated Creatinine Clearance 127.03 ml/min; Globulin 3.1 g/dL (2.2-4.2); Glucose 85 mg/dL (74-106); Potassium 4.1 mmol/L (3.5-5.1); Protein, Total 5.9 g/dL (6.4-8.2); Sodium Level 133 mmol/L (136-145)
[2021-10-27] MEDS: Aspirin 81 MG TAB.CHEW PO (08:21)
[2021-10-27] MEDS: Docusate Sodium 100 MG Capsule PO ×2 (08:21→21:09)
[2021-10-27] MEDS: Famotidine 20 MG Tablet PO ×2 (08:21→21:11)
[2021-10-27] MEDS: Fenofibrate 48 MG Tablet PO (08:21)
[2021-10-27] MEDS: Cholecalciferol (VIT D3) 25 MCG TABLET (1,000 UNITS) 50 MCG PO (08:21)
[2021-10-27] MEDS: Benztropine 2 MG Tablet 1 MG PO ×2 (08:21→21:08)
[2021-10-27] MEDS: APIXABAN 5 MG TABLET PO ×2 (08:22→21:12)
[2021-10-27] MEDS: OXcarbazepine 300 MG Tablet PO ×2 (08:22→21:08)
[2021-10-27] MEDS: Ceftriaxone 1 GM/50 ML BAG IV ×2 (09:04→21:26)
--- NOTE | 2021-10-27 12:08 | DCINST_ITS ---
Discharge Instructions Follow Up Care Test Results: Test results from this visit will be discussed in further detail at your follow- up appointment, if applicable. Discharge Plan Admission Admit Date/Time: 10/25/21 14:43 Primary Reason for Your Visit: TIA Attending Provider: Flora Mtz Primary Care Provider: Tevin Prather Discharge Orders/Prescriptions Prescriptions: No Action latanoprost 0.005 % drops 1 drp EACH EYE QHS atorvastatin 40 mg tablet 40 mg PO QHS olanzapine 10 mg tablet 10 mg PO QHS Label Comments: PER LONGTERM MAR TAKES 1 (20 MG) AND 1 (10 MG) TABLET DAILY @ QHS TO MAKE DAILY TOTAL DOSE OF 30 MG. oxcarbazepine 300 mg tablet 300 mg PO BID Label Comments: PER LONGTERM MAR TAKES BID @ 0800 AND 1800 amlodipine 5 mg tablet 5 mg PO DAILY acetaminophen [Arthritis Pain Relief (acetam)] 650 mg tablet extended release 1,300 mg PO BID citalopram 20 mg tablet 20 mg PO QHS tamsulosin 0.4 mg capsule 0.4 mg PO QHS divalproex 500 mg tablet extended release 24 hr 500 mg PO DAILY divalproex 500 mg tablet extended release 24 hr 1,000 mg PO QHS benztropine 1 mg tablet 1 mg PO BID docusate sodium 100 mg capsule 100 mg PO BID olanzapine 20 mg tablet 20 mg PO QHS Label Comments: PER LONGTERM MAR TAKES 1 (20 MG) AND 1 (10 MG) TABLET DAILY @ QHS TO MAKE DAILY TOTAL DOSE OF 30 MG. cholecalciferol (vitamin D3) 50 mcg (2,000 unit) tablet 50 mcg PO DAILY fenofibrate 54 mg tablet 54 mg PO DAILY Eliquis 5 mg tablet 5 mg PO BID Referrals / Follow Up: Tevin Prather MD [Primary Care Provider] -
[2021-10-27] MEDS: Senna/Docusate Sodium 1 Tablet 2 TABLET PO (15:35)
--- NOTE | 2021-10-27 16:01 | PCM.PN.HOSP ---
Subjective Subjective Late entry note: Patient was seen and examined on 10/26/21. We were waiting on SOC consult/PT/OT for possible discharge. Follow-up on right sided weakness: Patient was seen and examined. No new complaints. Objective Data Objective Data Vital Signs: Vital Signs Temp Pulse Resp BP Pulse Ox 97.7 F L 54 L 18 127/66 H 97 10/27/21 11:30 10/27/21 14:59 10/27/21 11:30 10/27/21 11:30 10/27/21 14:54 Oxygen Delivery Method Room Air Weight: 105.4 kg Body Mass Index (BMI) 29.2 Intake & Output: Intake and Output for Last 24 Hours 10/25/21 10/26/21 10/27/21 23:59 23:59 23:59 Intake Total 1217.5 / 1217.5 1215 / 1215 1145 / 1145 Output Total 300 / 1200 3830 / 3830 1150 / 1150 Balance 917.5 / 17.5 -2615 / -2615 -5 / -5 Lab / Micro Data Result Diagrams: 10/27/21 05:23 10/27/21 05:23 Labs: Laboratory Results - last 24 hr 10/27/21 05:23: WBC 4.1 L, RBC 4.12 L, Hgb 12.9 L, Hct 38.4 L, MCV 93.2, MCH 31.3, MCHC 33.6, RDW Std Deviation 44.5 H, RDW Coeff of Joshua 13.0, Plt Count 98 L, MPV 9.8, Immature Gran % (Auto) 1.200 H, Neut % (Auto) 33.3 L, Lymph % (Auto) 47.8 H, [place] % (Auto) 12.3 H, Eos % (Auto) 4.4, Baso % (Auto) 1.0, Absolute Neuts (auto) 1.4 L, Absolute Lymphs (auto) 1.94, Nucleated RBC % 0 10/27/21 05:23: Sodium 133 L, Potassium 4.1, Chloride 101, Carbon Dioxide 26.0, Anion Gap 6, BUN 13, Creatinine 0.71, Estim Creat Clear Calc 127.03, Est GFR (MDRD) Af Amer 146, Est GFR (MDRD) Non-Af 120, BUN/Creatinine Ratio 18.4, Glucose 85, Calcium 9.1, Total Bilirubin 0.30, AST 35, ALT 15 L, Alkaline Phosphatase 53, Total Protein 5.9 L, Albumin 2.8 L, Globulin 3.1, Albumin/Globulin Ratio 0.9 Physical Exam Narrative Physical exam: General: Alert, Oriented x3, cooperative, HEENT: Atraumatic Oral: Moist Mucosa Neck: Supple Lungs: Clear to auscultation Cardiovascular: HS I+II, regular, no murmurs Abdomen: Bowel Sounds Present, Soft, Non Tender Extremities: No edema Skin: No rashes, No breakdown Neurological: Slight right facial droop, weakness in both legs Psych/Mental Status: Appropriate Assessment & Plan Assessment/Plan (1) CVA (cerebral vascular accident): PLAN: Plan 1. Acute onset of right-sided weakness/slurred speech likely secondary to TIA History of stroke, not a TPA candidate MRI of the brain, MRA of the head and neck are unremarkable 2D echo shows 55-60%, lipid profile shows trig 41, T chol 92, LDL 23, HDL 61, HbA1c 4.9 2. Paroxysmal atrial fibrillation, in normal sinus rhythm, continue apixaban 3. Hypertension, controlled, continue on amlodipine 4. Seizure disorder, continue on valproic acid, oxcarbazepine 5. Hyperlipidemia, continue fenofibrate and statin 6. Schizoaffective disorder, continue benztropine, citalopram, olanzapine 7. BPH, continue on flomax 8. DVT PPx- on apixaban Charges/Coding Visit Charges Inpatient E&M: 09525 Subs Hosp L2
--- NOTE | 2021-10-27 16:10 | PN.HOSP_ITS ---
Subjective Subjective Follow-up on right sided weakness: Patient was seen and examined. No new complaints. Patient was seen by PT/OT and skilled for dc to SNF. Objective Data Objective Data Vital Signs: Vital Signs Temp Pulse Resp BP Pulse Ox 97.7 F L 54 L 18 127/66 H 97 10/27/21 11:30 10/27/21 14:59 10/27/21 11:30 10/27/21 11:30 10/27/21 14:54 Oxygen Delivery Method Room Air Weight: 105.4 kg Body Mass Index (BMI) 29.2 Intake & Output: Intake and Output for Last 24 Hours 10/25/21 10/26/21 10/27/21 23:59 23:59 23:59 Intake Total 1217.5 / 1217.5 1215 / 1215 1145 / 1145 Output Total 300 / 1200 3830 / 3830 1150 / 1150 Balance 917.5 / 17.5 -2615 / -2615 -5 / -5 Lab / Micro Data Result Diagrams: 10/27/21 05:23 10/27/21 05:23 Labs: Laboratory Results - last 24 hr 10/27/21 05:23: WBC 4.1 L, RBC 4.12 L, Hgb 12.9 L, Hct 38.4 L, MCV 93.2, MCH 3 1.3, MCHC 33.6, RDW Std Deviation 44.5 H, RDW Coeff of Joshua 13.0, Plt Count 98 L, MPV 9.8, Immature Gran % (Auto) 1.200 H, Neut % (Auto) 33.3 L, Lymph % (Auto) 47.8 H, [place] % (Auto) 12.3 H, Eos % (Auto) 4.4, Baso % (Auto) 1.0, Absolute Neuts (auto) 1.4 L, Absolute Lymphs (auto) 1.94, Nucleated RBC % 0 10/27/21 05:23: Sodium 133 L, Potassium 4.1, Chloride 101, Carbon Dioxide 26.0, Anion Gap 6, BUN 13, Creatinine 0.71, Estim Creat Clear Calc 127.03, Est GFR (MDRD) Af Amer 146, Est GFR (MDRD) Non-Af 120, BUN/Creatinine Ratio 18.4, Glucose 85, Calcium 9.1, Total Bilirubin 0.30, AST 35, ALT 15 L, Alkaline Phosphatase 53, Total Protein 5.9 L, Albumin 2.8 L, Globulin 3.1, Albumin/Globulin Ratio 0.9 Physical Exam Narrative General: Alert, Oriented x3, cooperative, HEENT: Atraumatic Oral: Moist Mucosa Neck: Supple Lungs: Clear to auscultation Cardiovascular: HS I+II, regular, no murmurs Abdomen: Bowel Sounds Present, Soft, Non Tender Extremities: No edema Skin: No rashes, No breakdown Neurological: Slight right facial droop, weakness in both legs Psych/Mental Status: Appropriate Assessment & Plan Assessment/Plan (1) CVA (cerebral vascular accident): PLAN: Plan 1. Acute onset of right-sided weakness/slurred speech likely secondary to TIA vs recrudescence of old stroke History of stroke, not a TPA candidate on admission MRI of the brain, MRA of the head and neck are unremarkable 2D echo shows 55-60%, lipid profile shows trig 41, T chol 92, LDL 23, HDL 61, HbA1c 4.9 Awaiting tele-neurology consult 2. Paroxysmal atrial fibrillation, in normal sinus rhythm, continue apixaban 3. Hypertension, controlled, continue on amlodipine 4. Seizure disorder, continue on valproic acid, oxcarbazepine 5. Hyperlipidemia, continue fenofibrate and statin 6. Schizoaffective disorder, continue benztropine, citalopram, olanzapine 7. BPH, continue on flomax 8. DVT PPx- on apixaban Charges/Coding Visit Charges OBSV E&M: 33980 Subsequent observation care L3
[2021-10-27] MEDS: Magnesium Hydroxide 30 ML UDC PO (18:53)
[2021-10-27] MEDS: 0.9% Saline Lock 10 ML Syringe IV (20:46)
[2021-10-27] MEDS: Latanoprost 0.005% 1 Bottle 1 DRP EACH EYE (21:05)
[2021-10-27] MEDS: Citalopram 20 MG Tablet PO (21:08)
[2021-10-27] MEDS: Divalproex (ER) 500 MG Tablet 1000 MG PO (21:08)
[2021-10-27] MEDS: Tamsulosin HCl 0.4 MG Capsule PO (21:08)
[2021-10-27] MEDS: Atorvastatin Calcium 80 MG Tablet PO (21:10)
[2021-10-27] MEDS: OLANZapine 10 MG Tablet 30 MG PO (21:11)
[2021-10-28] VITALS (9 sets, daily range): BP systolic 136–161; BP diastolic 73–80; PULSE 52–66; RESP 16–18; TEMP 36.6–36.9; O2SAT 91–99
[2021-10-28] MEDS: Acetaminophen 500 MG Tablet 1000 MG PO ×3 (06:18→22:16)
[2021-10-28] MEDS: Cholecalciferol (VIT D3) 25 MCG TABLET (1,000 UNITS) 50 MCG PO (07:56)
[2021-10-28] MEDS: Docusate Sodium 100 MG Capsule PO ×2 (07:56→22:14)
[2021-10-28] MEDS: Famotidine 20 MG Tablet PO ×2 (07:56→22:17)
[2021-10-28] MEDS: APIXABAN 5 MG TABLET PO ×2 (07:56→22:16)
[2021-10-28] MEDS: Divalproex (ER) 500 MG Tablet PO (07:56)
[2021-10-28] MEDS: amLODIPine 5 MG Tablet PO (07:56)
[2021-10-28] MEDS: OXcarbazepine 300 MG Tablet PO ×2 (07:56→22:17)
[2021-10-28] MEDS: Aspirin 81 MG TAB.CHEW PO (07:56)
[2021-10-28] MEDS: Fenofibrate 48 MG Tablet PO (07:56)
[2021-10-28] MEDS: Benztropine 2 MG Tablet 1 MG PO ×2 (07:57→22:14)
[2021-10-28] MEDS: 0.9% Saline Lock 10 ML Syringe IV ×2 (09:19→22:10)
[2021-10-28] MEDS: Ceftriaxone 1 GM/50 ML BAG IV (09:19)
--- NOTE | 2021-10-28 09:32 | CASEMGMT ---
Per therapy patient needs short term SNF placement. MASOUD met with patient. Introduced self and role at [facility]. Patient is aware [facility] facility is recommended and he would like to go to [facility] in [place] as his girflriend is there. MASOUD told patient we will start there and if for some reason they cannot take him SW will bring a list back. MASOUD notified d/c planning consultant Briana and she will work on referral. Gracie Lyn DISPATCHER RELAY SAI
--- NOTE | 2021-10-28 09:48 | CASEMGMT ---
Discharge Aml Analyst Patients 1st choice was [facility]. Left a VM for admissions. Faxed over referral. Will follow up. Briana Townsend Discharge Aml Analyst
[2021-10-28] MEDS: Polyethylene Glycol 3350 17 GM PACKET PO (10:20)
--- NOTE | 2021-10-28 10:29 | CASEMGMT ---
MASOUD spoke with patient to inquire about his mental health history. Mental Health history will be needed to complete the PASRR for patient as he is observation status. Patient said he has not had any Psych unit admissions in the last 2 years. Patient has a welfare case worker through [facility] in [place]. Patient's welfare case worker's name is Kourtney Barrientos and her phone number is [phone]. MASOUD called Kourtney and introduced self and role at [facility]. Kourtney said patient has not had any psychiatric admissions or emergency psych services in a long time. Not in the last 2 years. Patient does have a diagnosis of Bipolar and Schizophrenia. Patient has a guardian, Agriculture Research Director Mateo Freeman. Kourtney would like to know where patient ends up going for rehab. MASOUD then called Agriculture Research Director Mateo Freeman's office ([phone]). MASOUD confirmed he is patient's guardian. His office will fax the guardianship paperwork. They will have Mateo call MASOUD as he is in court this am. MASOUD spoke with patient about his seizure disorder. Patient said he does not have a seizure disorder. MASOUD called patient's alf where he resides and spoke with Anne Fox the mysql database administrator and consumer electronics merchandiser of the home. Anne said patient does not have a seizure disorder. MASOUD called patient's primary care doctor's office and they do not have patient listed as having a seizure disorder. Gracie Lyn MSW SAI
[2021-10-28] MEDS: Fleet Enema 1 ML RC (10:30)
--- NOTE | 2021-10-28 11:03 | CASEMGMT ---
SW received guardianship papers from patient's guardian. SW placed a copy in the chart. SW also received a list of patient's diagnoses from his primary care doctor's office and they do not have a diagnosis of seizure disorder. Awaiting response from [facility]. Gracie GIBBS
--- NOTE | 2021-10-28 11:05 | CASEMGMT ---
SW completed a PHQ9 with patient as he had a TIA. Patient scored a 0 which indicates no depression. Patient said he does have Bipolar, but he is doing well. Gracie Lyn EMBOSSING TOOLSETTER SAI
--- NOTE | 2021-10-28 11:07 | CASEMGMT ---
Discharge Hot Wire Glass Tube Cutter D/C Appeals Court Associate Justice called [facility]. Left another VM regarding referral. Will continue to follow up. Briana Townsend Discharge Hot Wire Glass Tube Cutter
--- NOTE | 2021-10-28 11:25 | PCM.PN.HOSP ---
Subjective Subjective No significant issues overnight other than urinary retention. Patient states he is feeling well. He did demonstrate the need for skilled placement over the weekend and this is currently in progress. He will need pre-CERT prior to discharge. He complains that he is constipated and has not had a bowel movement since Thursday. He states he typically has a bowel movement every 2 to 3 days. He did require straight cath overnight. Objective Data Objective Data Vital Signs: Vital Signs Temp Pulse Resp BP Pulse Ox 98.4 F 54 L 18 142/77 H 98 10/28/21 09:20 10/28/21 09:20 10/28/21 09:20 10/28/21 09:20 10/28/21 09:20 Oxygen Delivery Method Room Air Weight: 109.7 kg Body Mass Index (BMI) 29.2 Intake & Output: Intake and Output for Last 24 Hours 10/26/21 10/27/21 10/28/21 23:59 23:59 23:59 Intake Total 1215 / 1215 2045 / 2045 50 / 50 Output Total 3830 / 3830 1850 / 2650 800 / 800 Balance -2615 / -2615 195 / -605 -750 / -750 Lab / Micro Data Result Diagrams: 10/27/21 05:23 10/27/21 05:23 Physical Exam Const alert, oriented x3, no apparent distress and well nourished Constitutional Narrative: Obese white male sitting up in a chair, appears comfortable and nontoxic, speech is slightly dysarthric which apparently is his baseline HEENT HEENT Narrative: Dentition is poor, Mallampati 2, no thrush Resp normal respiratory effort, no retractions, no use of accessory muscles and clear to auscultation bilaterally Auscultation: Negative for crackles, rales, rhonchi or wheezes Cardio regular rate, regular rhythm, S1 normal heart sound, S2 normal heart sound, no murmurs, no rub, no gallops, no clicks and no JVD GI normal to inspection, nondistended, normoactive bowel sounds, soft to palpation, non-tender and non-distended; Negative for hepatosplenomegaly Extremity no clubbing, cyanosis or edema Neuro oriented x3, CN's II-XII intact bilaterally, moves all extremities and no focal motor deficits Neuro Narrative: no generalized weakness Sensorium / Orientation: awake and alert Speech: Negative for speech normal Psych affect normal Psych Narrative: Very pleasant and appropriately interactive Assessment & Plan Assessment/Plan (1) Facial droop: (2) TIA (transient ischemic attack): PLAN: Plan Suspected TIA -All imaging is negative for any acute findings -Echocardiogram shows an EF of 55 to 60% with a negative bubble study -No tPA given on admission -SOC neurology has evaluated the patient and agrees with current changes in treatment to include intensifying his statin dosing -Continue aspirin -Continue Eliquis for PAF -Continue PT and OT -Patient was deemed appropriate for skilled facility and the need for further skilled rehab prior to transitioning back to his assisted living arrangement and pre-CERT is currently pending Mild chronic anemia -Counts appear to be stable -Continue to monitor Mild chronic leukopenia/thrombocytopenia -Suspect related to his antipsychotic medication for his bipolar disease -Counts are stable Hypertension -Continue amlodipine BPH -Continue Flomax Hyperlipidemia -Continue intensified statin for pleiotropic effects -Continue fenofibrate Seizure disorder -Continue valproic acid -Continue Trileptal PAF -Patient remains in normal sinus rhythm -Continue apixaban 5 mg twice daily Schizoaffective disorder -Continue Cogentin -Continue citalopram -Continue olanzapine DVT prophylaxis -Fully anticoagulated with apixaban CODE STATUS -Full code Charges/Coding Visit Charges Inpatient E&M: 38908 Subs Hosp L2
--- NOTE | 2021-10-28 12:08 | CASEMGMT ---
Discharge Janitor Caretaker Aylin from [facility] can accept patient. Aylin will start Pre-cert. MASOUD Bowman notified. Briana Townsend Discharge Janitor Caretaker
[2021-10-28] MEDS: Tamsulosin HCl 0.4 MG Capsule PO ×2 (12:16→22:58)
--- NOTE | 2021-10-28 12:19 | CASEMGMT ---
MASOUD received a phone call from patient's guardian Mateo. Mateo was not aware patient was in the hospital. MASOUD explained patient will need to go somewhere short term for therapy. MASOUD explained patient wants to go to [facility] in [place]. Mateo was in agreement with this plan. MASOUD asked if he would like the nurse to call with medical information. Mateo said that would be fine if there are updates. Mateo's cell number is [phone]. Plan: d/c to [facility] pending pre-cert. Gracie Lyn BILINGUAL ELEMENTARY SCHOOL TEACHER SAI
[2021-10-28] MEDS: Senna/Docusate Sodium 1 Tablet 2 TABLET PO (16:03)
[2021-10-28] MEDS: Latanoprost 0.005% 1 Bottle 1 DRP EACH EYE (22:11)
[2021-10-28] MEDS: Citalopram 20 MG Tablet PO (22:14)
[2021-10-28] MEDS: Divalproex (ER) 500 MG Tablet 1000 MG PO (22:15)
[2021-10-28] MEDS: OLANZapine 10 MG Tablet 30 MG PO (22:17)
[2021-10-28] MEDS: Atorvastatin Calcium 80 MG Tablet PO (22:17)
[2021-10-29] VITALS (10 sets, daily range): BP systolic 132–150; BP diastolic 61–80; PULSE 55–71; RESP 16–18; TEMP 36.6–36.9; O2SAT 94–99
[2021-10-29 05:13] LABS: Absolute Lymphocyte Count 1.62 X10^3/uL (0.83-4.51); Absolute Neutrophil Count 5.3 X10^3/uL (2.0-7.7); Basophil# 0.02 X10^3/uL; Basophil% 0.3 % (0-1); Eosinophil# 0.08 X10^3/uL; Hemoglobin 13.5 g/dL (13.0-16.5); Lymphocyte # 1.62 X10^3/ul (0.83-4.51); Lymphocyte % 20.3 % (19-41); Mean Corp Hgb Conc 34.6 g/dL (32-36); Mean Corpuscular Hgb 31.6 pg (27.0-32.0); Mean Corpuscular Volume 91.3 fL (80-94); Mean Platelet Vol. 10.3 fl (6.2-12.0); Monocyte# 0.97 X10^3/uL; Monocyte% 12.1 % (0-10); NRBC Flagged by Analyzer 0 % (0-5); Neutrophil # 5.25 X10^3/uL (2.7-7.7); Neutrophil % 65.5 % (47-70); POSITIVE COUNT YES; Platelet Count 94 K/mm3 (150-450); RBC Distribution Width CV 12.5 % (11.6-14.6); RBC Distribution Width SD 41.4 fl (35.1-43.9); Red Blood Count 4.27 M/mm3 (4.6-6.2)
[2021-10-29 05:41] LABS: Anion Gap 6 (5-15); BUN 11 mg/dL (7-18); BUN/Creat Ratio 16.2 RATIO (10-20); Calcium,Total 8.8 mg/dL (8.5-10.1); Chloride 98 mmol/L (98-107); Creatinine, Serum 0.68 mg/dL (0.70-1.30); EST Glomerular Filtration Rate 126 mL/min (>60); Est Glom Filt Rate - Afr Amer 152 mL/min (>60); Estimated Creatinine Clearance 132.63 ml/min; Glucose 106 mg/dL (74-106); Potassium 4.1 mmol/L (3.5-5.1); Sodium Level 130 mmol/L (136-145)
[2021-10-29] MEDS: Acetaminophen 500 MG Tablet 1000 MG PO ×3 (06:34→22:28)
[2021-10-29] MEDS: Fenofibrate 48 MG Tablet PO (08:57)
[2021-10-29] MEDS: Aspirin 81 MG TAB.CHEW PO (08:57)
[2021-10-29] MEDS: Famotidine 20 MG Tablet PO ×2 (09:39→22:26)
[2021-10-29] MEDS: Cholecalciferol (VIT D3) 25 MCG TABLET (1,000 UNITS) 50 MCG PO (09:39)
[2021-10-29] MEDS: Docusate Sodium 100 MG Capsule PO ×2 (09:39→22:28)
[2021-10-29] MEDS: Benztropine 2 MG Tablet 1 MG PO ×2 (09:39→22:27)
[2021-10-29] MEDS: OXcarbazepine 300 MG Tablet PO ×2 (09:40→22:25)
[2021-10-29] MEDS: Divalproex (ER) 500 MG Tablet PO (09:40)
[2021-10-29] MEDS: APIXABAN 5 MG TABLET PO ×2 (09:40→22:25)
[2021-10-29] MEDS: amLODIPine 5 MG Tablet PO (09:40)
[2021-10-29] MEDS: Polyethylene Glycol 3350 17 GM PACKET PO (09:41)
--- NOTE | 2021-10-29 11:44 | CASEMGMT ---
Discharge Cement Gun Operator Discharge Cement Gun Operator called [facility]. D/C Fast Food Server left a Vm regarding pre-cert. Will follow up. Briana Townsend Discharge Cement Gun Operator
[2021-10-29] MEDS: 0.9% Saline Lock 10 ML Syringe IV (14:14)
--- NOTE | 2021-10-29 16:07 | PN.HOSP_ITS ---
Subjective Subjective States he had a good bowel movement overnight. Unfortunately he has had persistent urinary retention and Cobian was placed overnight. I discussed with the patient trying to get that out today now that he had couple bowel movements and he was agreeable. He is also been on Flomax hopefully this will help him as well. He is anxious to get to a skilled facility to see his girlfriend. Objective Data Objective Data Vital Signs: Vital Signs Temp Pulse Resp BP Pulse Ox 98 F 55 L 18 132/77 H 99 10/29/21 15:42 10/29/21 15:42 10/29/21 15:42 10/29/21 15:42 10/29/21 15:42 Oxygen Delivery Method Room Air Weight: 108 kg Body Mass Index (BMI) 29.2 Intake & Output: Intake and Output for Last 24 Hours 10/27/21 10/28/21 10/29/21 23:59 23:59 23:59 Intake Total 2045 / 2045 1625 / 1625 870 / 870 Output Total 1850 / 2650 1775 / 2775 5800 / 5800 Balance 195 / -605 -150 / -1150 -4930 / -4930 Lab / Micro Data Result Diagrams: 10/29/21 04:35 10/29/21 04:35 Labs: Laboratory Results - last 24 hr 10/29/21 04:35: WBC 8.0, RBC 4.27 L, Hgb 13.5, Hct 39.0 L, MCV 91.3, MCH 31.6, MCHC 34.6, RDW Std Deviation 41.4, RDW Coeff of Joshua 12.5, Plt Count 94 L, MPV 10.3, Immature Gran % (Auto) 0.800, Neut % (Auto) 65.5, Lymph % (Auto) 20.3, [place] % (Auto) 12.1 H, Eos % (Auto) 1.0, Baso % (Auto) 0.3, Absolute Neuts (auto) 5.3, Absolute Lymphs (auto) 1.62, Nucleated RBC % 0 10/29/21 04:35: Sodium 130 L, Potassium 4.1, Chloride 98, Carbon Dioxide 26.0, Anion Gap 6, BUN 11, Creatinine 0.68 L, Estim Creat Clear Calc 132.63, Est GFR (MDRD) Af Amer 152, Est GFR (MDRD) Non-Af 126, BUN/Creatinine Ratio 16.2, Glucose 106, Calcium 8.8 Physical Exam Const alert, oriented x3, no apparent distress and well nourished Constitutional Narrative: Obese white male sitting up in a chair, appears comfortable and nontoxic, speech is slightly dysarthric which apparently is his baseline HEENT head/scalp atraumatic and moist oral mucous membranes HEENT Narrative: Edentulous, Mallampati 2, no thrush Resp normal respiratory effort, no retractions, no use of accessory muscles and clear to auscultation bilaterally Auscultation: Negative for crackles, rales, rhonchi or wheezes Cardio regular rate, regular rhythm, S1 normal heart sound, S2 normal heart sound, no murmurs, no rub, no gallops, no clicks and no JVD GI normal to inspection, nondistended, normoactive bowel sounds, soft to palpation, non-tender and non-distended; Negative for hepatosplenomegaly Extremity no clubbing, cyanosis or edema Extremity Narrative: 2+ pedal pulses Neuro oriented x3, CN's II-XII intact bilaterally, moves all extremities and no focal motor deficits Neuro Narrative: no generalized weakness Sensorium / Orientation: awake and alert Speech: Negative for speech normal Psych affect normal Psych Narrative: Very pleasant and appropriately interactive Assessment & Plan Assessment/Plan (1) Facial droop: (2) TIA (transient ischemic attack): PLAN: Plan Suspected TIA -All imaging is negative for any acute findings -Echocardiogram shows an EF of 55 to 60% with a negative bubble study -No tPA given on admission -SOC neurology has evaluated the patient and agrees with current changes in treatment to include intensifying his statin dosing -Continue aspirin -Continue Eliquis for PAF -Continue PT and OT -Awaiting pre-CERT for skilled facility placement plan is for discharge to [facility] once pre-CERT is obtained hopefully in the next 24 hours Mild chronic anemia -Hemoglobin is normalized today Mild chronic leukopenia/thrombocytopenia -Leukopenia has resolved -Thrombocytopenia stable and chronic Hypertension -Continue amlodipine Constipation -Resolved BPH with urinary retention -Continue Flomax added yesterday -We will try to discontinue Cobian which was added overnight Hyperlipidemia -Continue intensified statin for pleiotropic effects -Continue fenofibrate Seizure disorder -Continue valproic acid -Continue Trileptal PAF -Patient remains in normal sinus rhythm -Continue apixaban 5 mg twice daily Schizoaffective disorder -Continue Cogentin -Continue citalopram -Continue olanzapine DVT prophylaxis -Fully anticoagulated with apixaban CODE STATUS -Full code Charges/Coding Visit Charges Inpatient E&M: 79972 Subs Hosp L2
[2021-10-29] MEDS: Divalproex (ER) 500 MG Tablet 1000 MG PO (22:24)
[2021-10-29] MEDS: Tamsulosin HCl 0.4 MG Capsule PO (22:26)
[2021-10-29] MEDS: Citalopram 20 MG Tablet PO (22:26)
[2021-10-29] MEDS: Atorvastatin Calcium 80 MG Tablet PO (22:26)
[2021-10-29] MEDS: OLANZapine 10 MG Tablet 30 MG PO (22:27)
[2021-10-29] MEDS: Latanoprost 0.005% 1 Bottle 1 DRP EACH EYE (22:29)
[2021-10-30] VITALS (11 sets, daily range): BP systolic 123–132; BP diastolic 59–81; PULSE 52–66; RESP 16–18; TEMP 36.6–37.3; O2SAT 94–97
[2021-10-30] MEDS: Acetaminophen 500 MG Tablet 1000 MG PO ×3 (06:11→22:37)
[2021-10-30 06:44] LABS: Anion Gap 5 (5-15); BUN 16 mg/dL (7-18); BUN/Creat Ratio 23.4 RATIO (10-20); Calcium,Total 8.8 mg/dL (8.5-10.1); Chloride 103 mmol/L (98-107); Creatinine, Serum 0.68 mg/dL (0.70-1.30); EST Glomerular Filtration Rate 125 mL/min (>60); Est Glom Filt Rate - Afr Amer 151 mL/min (>60); Estimated Creatinine Clearance 132.63 ml/min; Glucose 76 mg/dL (74-106); Potassium 4.1 mmol/L (3.5-5.1); Sodium Level 135 mmol/L (136-145)
[2021-10-30] MEDS: Fenofibrate 48 MG Tablet PO (08:29)
[2021-10-30] MEDS: Aspirin 81 MG TAB.CHEW PO (08:29)
--- NOTE | 2021-10-30 08:55 | CASEMGMT ---
Discharge Card Reader Discharge Card Reader called [facility]. Pre-cert has not yet been obtained. Briana Townsend Discharge Card Reader
[2021-10-30] MEDS: Polyethylene Glycol 3350 17 GM PACKET PO (10:05)
[2021-10-30] MEDS: Docusate Sodium 100 MG Capsule PO ×2 (10:06→22:38)
[2021-10-30] MEDS: amLODIPine 5 MG Tablet PO (10:06)
[2021-10-30] MEDS: Famotidine 20 MG Tablet PO ×2 (10:06→22:39)
[2021-10-30] MEDS: Cholecalciferol (VIT D3) 25 MCG TABLET (1,000 UNITS) 50 MCG PO (10:07)
[2021-10-30] MEDS: Divalproex (ER) 500 MG Tablet PO (10:07)
[2021-10-30] MEDS: APIXABAN 5 MG TABLET PO ×2 (10:07→22:39)
[2021-10-30] MEDS: Benztropine 2 MG Tablet 1 MG PO ×2 (10:08→22:37)
[2021-10-30] MEDS: OXcarbazepine 300 MG Tablet PO ×2 (10:12→22:40)
--- NOTE | 2021-10-30 11:57 | CASEMGMT ---
Briana d/c retail planning manager received a call from Aylin at [facility]. Insurance is requesting a copy of the 700 or PASRR and updated PT/OT notes. MASOUD faxed this information to [phone]. Gracie GIBBS
--- NOTE | 2021-10-30 17:52 | PCM.PN.HOSP ---
Subjective Subjective No issues overnight. The patient has done well with his [place] out and urinating without difficulty. He has had bowel movements and feels much better overall. He is anxiously awaiting to be able to go to a skilled facility. Objective Data Objective Data Vital Signs: Vital Signs Temp Pulse Resp BP Pulse Ox O2 Del Method 97.9 F 52 L 16 127/74 H 97 Room Air 10/30/21 16:32 10/30/21 16:32 10/30/21 16:32 10/30/21 16:32 10/30/21 16:32 10/30/21 16:32 Oxygen Delivery Method Room Air Weight: 107.7 kg Body Mass Index (BMI) 29.2 Intake & Output: Intake and Output for Last 24 Hours 10/28/21 10/29/21 10/30/21 23:59 23:59 23:59 Intake Total 1625 / 1625 1110 / 1510 900 / 900 Output Total 1775 / 2775 6550 / 6550 700 / 700 Balance -150 / -1150 -5440 / -5040 200 / 200 Lab / Micro Data Result Diagrams: 10/29/21 04:35 10/30/21 06:07 Labs: Laboratory Results - last 24 hr 10/30/21 06:07: Sodium 135 L, Potassium 4.1, Chloride 103, Carbon Dioxide 27.0, Anion Gap 5, BUN 16, Creatinine 0.68 L, Estim Creat Clear Calc 132.63, Est GFR (MDRD) Af Amer 151, Est GFR (MDRD) Non-Af 125, BUN/Creatinine Ratio 23.4 H, Glucose 76, Calcium 8.8 Physical Exam Const alert, oriented x3, no apparent distress and well nourished Constitutional Narrative: Obese white male sitting up in bed, appears comfortable and nontoxic, speech is slightly dysarthric which apparently is his baseline HEENT head/scalp atraumatic and moist oral mucous membranes HEENT Narrative: Mallampati 2, no thrush Resp normal respiratory effort, no retractions, no use of accessory muscles and clear to auscultation bilaterally Auscultation: Negative for crackles, rales, rhonchi or wheezes Cardio regular rate, regular rhythm, S1 normal heart sound, S2 normal heart sound, no murmurs, no rub, no gallops, no clicks and no JVD GI normal to inspection, nondistended, normoactive bowel sounds, soft to palpation, non-tender and non-distended; Negative for hepatosplenomegaly Extremity no clubbing, cyanosis or edema Extremity Narrative: 2+ pedal pulses Neuro oriented x3, CN's II-XII intact bilaterally, moves all extremities and no focal motor deficits Neuro Narrative: no generalized weakness Sensorium / Orientation: awake and alert Speech: Negative for speech normal Psych affect normal Psych Narrative: Very pleasant and appropriately interactive Assessment & Plan Assessment/Plan (1) Facial droop: (2) TIA (transient ischemic attack): PLAN: Plan Suspected TIA -All imaging is negative for any acute findings -Echocardiogram shows an EF of 55 to 60% with a negative bubble study -No tPA given on admission -[facility] neurology has evaluated the patient and agrees with current changes in treatment to include intensifying his statin dosing -Continue aspirin -Continue Eliquis for PAF -Continue PT and OT -Still awaiting pre-CERT for skilled facility placement plan is for discharge to [place] once pre-CERT is obtained Mild chronic leukopenia/thrombocytopenia -Leukopenia has resolved -Thrombocytopenia stable and chronic Hypertension -Continue amlodipine Constipation -Resolved BPH with urinary retention -Continue Flomax -Urinary retention has been resolved Hyperlipidemia -Continue intensified statin for pleiotropic effects -Continue fenofibrate Seizure disorder -Continue valproic acid -Continue Trileptal PAF -Patient remains in normal sinus rhythm -Continue apixaban 5 mg twice daily Schizoaffective disorder -Continue Cogentin -Continue citalopram -Continue olanzapine DVT prophylaxis -Fully anticoagulated with apixaban CODE STATUS -Full code Charges/Coding Visit Charges Inpatient E&M: 79923 Subs Hosp L2
[2021-10-30] MEDS: Citalopram 20 MG Tablet PO (22:37)
[2021-10-30] MEDS: Latanoprost 0.005% 1 Bottle 1 DRP EACH EYE (22:37)
[2021-10-30] MEDS: Divalproex (ER) 500 MG Tablet 1000 MG PO (22:38)
[2021-10-30] MEDS: Tamsulosin HCl 0.4 MG Capsule PO (22:39)
[2021-10-30] MEDS: Atorvastatin Calcium 80 MG Tablet PO (22:39)
[2021-10-30] MEDS: OLANZapine 10 MG Tablet 30 MG PO (22:44)
[2021-10-31] VITALS (11 sets, daily range): BP systolic 125–146; BP diastolic 62–75; PULSE 47–67; RESP 18; TEMP 36.3–36.9; O2SAT 97–98
[2021-10-31] MEDS: Acetaminophen 500 MG Tablet 1000 MG PO ×2 (06:34→14:55)
[2021-10-31] MEDS: Famotidine 20 MG Tablet PO ×2 (08:56→21:12)
[2021-10-31] MEDS: Polyethylene Glycol 3350 17 GM PACKET PO (08:56)
[2021-10-31] MEDS: Cholecalciferol (VIT D3) 25 MCG TABLET (1,000 UNITS) 50 MCG PO (08:56)
[2021-10-31] MEDS: OXcarbazepine 300 MG Tablet PO ×2 (08:56→21:10)
[2021-10-31] MEDS: Fenofibrate 48 MG Tablet PO (08:57)
[2021-10-31] MEDS: APIXABAN 5 MG TABLET PO ×2 (08:57→21:10)
[2021-10-31] MEDS: Divalproex (ER) 500 MG Tablet PO (08:57)
[2021-10-31] MEDS: Benztropine 2 MG Tablet 1 MG PO ×2 (08:57→21:10)
[2021-10-31] MEDS: Aspirin 81 MG TAB.CHEW PO (08:57)
--- NOTE | 2021-10-31 09:17 | CASEMGMT ---
Discharge Stove Cleaner Discharge Stove Cleaner called Aylin at [facility]. Left a voicemail to see if pre-cert has been obtained yet. Will keep following up. Briana Santos Discharge Planning Assistat
[2021-10-31] MEDS: amLODIPine 5 MG Tablet PO (10:04)
[2021-10-31] MEDS: Bisacodyl 5 MG Tablet 10 MG PO (11:17)
--- NOTE | 2021-10-31 18:57 | PCM.PN.HOSP ---
Subjective Subjective No issues overnight. Patient states he is having a little bit of constipation again. Urinating without difficulty and indicates he has to use the urinal now. Still awaiting pre-CERT. Objective Data Objective Data Vital Signs: Vital Signs Temp Pulse Resp BP Pulse Ox O2 Del Method 98.4 F 64 18 146/73 H 98 Room Air 10/31/21 17:20 10/31/21 17:20 10/31/21 17:20 10/31/21 17:20 10/31/21 17:20 10/31/21 17:20 Oxygen Delivery Method Room Air Weight: 106.7 kg Body Mass Index (BMI) 29.2 Intake & Output: Intake and Output for Last 24 Hours 10/29/21 10/30/21 10/31/21 23:59 23:59 23:59 Intake Total 1110 / 1510 1200 / 1200 720 / 720 Output Total 6550 / 6550 700 / 700 1900 / 1900 Balance -5440 / -5040 500 / 500 -1180 / -1180 Lab / Micro Data Result Diagrams: 10/29/21 04:35 10/30/21 06:07 Physical Exam Const alert, oriented x3, no apparent distress and well nourished Constitutional Narrative: Obese white male sitting up in bed, appears comfortable and nontoxic, speech is slightly dysarthric which apparently is his baseline, watching television HEENT head/scalp atraumatic and moist oral mucous membranes Resp normal respiratory effort, no retractions, no use of accessory muscles and clear to auscultation bilaterally Auscultation: Negative for crackles, rales, rhonchi or wheezes Cardio regular rate, regular rhythm, S1 normal heart sound, S2 normal heart sound, no murmurs, no rub, no gallops, no clicks and no JVD GI normal to inspection, nondistended, normoactive bowel sounds, soft to palpation, non-tender and non-distended; Negative for hepatosplenomegaly Extremity no clubbing, cyanosis or edema Extremity Narrative: 2+ pedal pulses Neuro oriented x3, CN's II-XII intact bilaterally, moves all extremities and no focal motor deficits Neuro Narrative: no generalized weakness Sensorium / Orientation: awake and alert Speech: Negative for speech normal Psych affect normal Psych Narrative: Very pleasant and appropriately interactive Assessment & Plan Assessment/Plan (1) Facial droop: (2) TIA (transient ischemic attack): PLAN: Plan Suspected TIA -All imaging is negative for any acute findings -Echocardiogram shows an EF of 55 to 60% with a negative bubble study -No tPA given on admission -[facility] neurology has evaluated the patient and agrees with current changes in treatment to include intensifying his statin dosing -Continue aspirin -Continue Eliquis for PAF -Continue PT and OT -Still awaiting pre-CERT for skilled facility placement plan is for discharge to [facility] once pre-CERT is obtained Mild chronic leukopenia/thrombocytopenia -Leukopenia has resolved -Thrombocytopenia stable and chronic Hypertension -Continue amlodipine Constipation -Resolved BPH with urinary retention -Continue Flomax -Urinary retention has been resolved Hyperlipidemia -Continue intensified statin for pleiotropic effects -Continue fenofibrate Seizure disorder -Continue valproic acid -Continue Trileptal PAF -Patient remains in normal sinus rhythm -Continue apixaban 5 mg twice daily Schizoaffective disorder -Continue Cogentin -Continue citalopram -Continue olanzapine DVT prophylaxis -Fully anticoagulated with apixaban CODE STATUS -Full code Charges/Coding Visit Charges Inpatient E&M: 76708 Subs Hosp L2
[2021-10-31 20:52] LABS: Anion Gap 7 (5-15); BUN 18 mg/dL (7-18); BUN/Creat Ratio 23.2 RATIO (10-20); Calcium,Total 9.2 mg/dL (8.5-10.1); Chloride 96 mmol/L (98-107); Creatinine, Serum 0.78 mg/dL (0.70-1.30); EST Glomerular Filtration Rate 108 mL/min (>60); Est Glom Filt Rate - Afr Amer 131 mL/min (>60); Estimated Creatinine Clearance 115.63 ml/min; Glucose 101 mg/dL (74-106); Potassium 4.1 mmol/L (3.5-5.1); Sodium Level 129 mmol/L (136-145)
[2021-10-31] MEDS: Latanoprost 0.005% 1 Bottle 1 DRP EACH EYE (21:09)
[2021-10-31] MEDS: Atorvastatin Calcium 80 MG Tablet PO (21:10)
[2021-10-31] MEDS: Docusate Sodium 100 MG Capsule PO (21:10)
[2021-10-31] MEDS: OLANZapine 10 MG Tablet 30 MG PO (21:10)
[2021-10-31] MEDS: Citalopram 20 MG Tablet PO (21:10)
[2021-10-31] MEDS: Divalproex (ER) 500 MG Tablet 1000 MG PO (21:11)
[2021-10-31] MEDS: Tamsulosin HCl 0.4 MG Capsule PO (21:11)
[2021-11-01 02:59] VITALS: PULSE 55
[2021-11-01 03:30] VITALS: BP 126/70; PULSE 51; RESP 18; TEMP 36.3; O2SAT 93
[2021-11-01] MEDS: Acetaminophen 500 MG Tablet 1000 MG PO ×2 (03:39→13:38)
[2021-11-01 04:23] LABS: Absolute Lymphocyte Count 1.83 X10^3/uL (0.83-4.51); Basophil# 0.05 X10^3/uL; Basophil% 1.1 % (0-1); Eosinophil# 0.19 X10^3/uL; Eosinophils% 4.1 % (0-5); Hematocrit 34.2 % (40-54); Hemoglobin 11.5 g/dL (13.0-16.5); Lymphocyte # 1.83 X10^3/ul (0.83-4.51); Lymphocyte % 39.3 % (19-41); Mean Corp Hgb Conc 33.6 g/dL (32-36); Mean Corpuscular Volume 92.2 fL (80-94); Mean Platelet Vol. 9.5 fl (6.2-12.0); Monocyte# 0.54 X10^3/uL; Monocyte% 11.6 % (0-10); NRBC Flagged by Analyzer 0 % (0-5); Neutrophil % 42.8 % (47-70); Platelet Count 105 K/mm3 (150-450); RBC Distribution Width CV 12.8 % (11.6-14.6); RBC Distribution Width SD 43.2 fl (35.1-43.9); Red Blood Count 3.71 M/mm3 (4.6-6.2); White Blood Count 4.7 K/mm3 (4.4-11.0)
[2021-11-01 04:41] LABS: Anion Gap 7 (5-15); BUN 15 mg/dL (7-18); BUN/Creat Ratio 21.4 RATIO (10-20); Chloride 100 mmol/L (98-107); EST Glomerular Filtration Rate 122 mL/min (>60); Est Glom Filt Rate - Afr Amer 147 mL/min (>60); Estimated Creatinine Clearance 128.85 ml/min; Glucose 78 mg/dL (74-106); Sodium Level 133 mmol/L (136-145)
[2021-11-01 07:00] VITALS: PULSE 47
--- NOTE | 2021-11-01 08:37 | CASEMGMT ---
Discharge Sample Puller Discharge Sample Puller called [facility]. Asked to speak to Aylin and got her voicemail. Discharge Sample Puller left a voicemail regarding pre-cert. Will keep following up. Brinaa Townsend Discharge Sample Puller
[2021-11-01 09:30] VITALS: BP 127/69; PULSE 61; RESP 18; TEMP 36.6; O2SAT 94
--- NOTE | 2021-11-01 09:41 | CASEMGMT ---
MASOUD e-mailed [facility] and they did receive pre-cert for patient. MASOUD notified RN, litigation legal secretary, physician, and patient. Await orders and COVID test. Gracie Lyn PANAMA HAT HYDRAULIC PRESS OPERATOR SAI
[2021-11-01] MEDS: Aspirin 81 MG TAB.CHEW PO (10:08)
[2021-11-01] MEDS: Fenofibrate 48 MG Tablet PO (10:08)
[2021-11-01] MEDS: Benztropine 2 MG Tablet 1 MG PO (10:09)
[2021-11-01] MEDS: Bisacodyl 5 MG Tablet 10 MG PO (10:09)
[2021-11-01] MEDS: APIXABAN 5 MG TABLET PO (10:10)
[2021-11-01] MEDS: amLODIPine 5 MG Tablet PO (10:10)
[2021-11-01] MEDS: Famotidine 20 MG Tablet PO (10:10)
[2021-11-01] MEDS: Polyethylene Glycol 3350 17 GM PACKET PO (10:10)
[2021-11-01] MEDS: OXcarbazepine 300 MG Tablet PO (10:11)
[2021-11-01] MEDS: Cholecalciferol (VIT D3) 25 MCG TABLET (1,000 UNITS) 50 MCG PO (10:11)
[2021-11-01] MEDS: Divalproex (ER) 500 MG Tablet PO (10:20)
[2021-11-01] MEDS: Docusate Sodium 100 MG Capsule PO (10:20)
--- NOTE | 2021-11-01 12:56 | DS.PCM_ITS ---
Providers Date of Admission: 10/25/21 Date of Discharge: 11/01/21 Primary Care Physician: Dr. Tevin Prather MD Reason For Visit: TIA/CVA Diagnosis Discharge Diagnosis (1) Facial droop: Status: Acute Code(s): R29.810 - Facial weakness (2) TIA (transient ischemic attack): Status: Acute Code(s): G45.9 - Transient cerebral ischemic attack, unspecified Plan Suspected TIA -All imaging is negative for any acute findings -Echocardiogram shows an EF of 55 to 60% with a negative bubble study -No tPA given on admission -[facility] neurology has evaluated the patient and agrees with current changes in t reatment to include intensifying his statin dosing -Continue aspirin -Continue Eliquis for PAF -Continue PT and OT -Still awaiting pre-CERT for skilled facility placement plan is for discharge to [facility] once pre-CERT is obtained Mild chronic leukopenia/thrombocytopenia -Leukopenia has resolved -Thrombocytopenia stable and chronic Hypertension -Continue amlodipine Constipation -Resolved BPH with urinary retention -Continue Flomax -Urinary retention has been resolved Hyperlipidemia -Continue intensified statin for pleiotropic effects -Continue fenofibrate Seizure disorder -Continue valproic acid -Continue Trileptal PAF -Patient remains in normal sinus rhythm -Continue apixaban 5 mg twice daily Schizoaffective disorder -Continue Cogentin -Continue citalopram -Continue olanzapine DVT prophylaxis -Fully anticoagulated with apixaban CODE STATUS -Full code Medications at Discharge Home Medications acetaminophen 650 mg tablet,extended release (Arthritis Pain Relief ( acetaminophen) ER) 1,300 mg PO BID PAIN 10/25/21 amlodipine 5 mg tablet 5 mg PO DAILY BP 10/25/21 apixaban 5 mg tablet (Eliquis) 5 mg PO BID BLOOD THINNER 10/25/21 benztropine 1 mg tablet 1 mg PO BID MOOD 10/25/21 cholecalciferol (vitamin D3) 50 mcg (2,000 unit) tablet 50 mcg PO DAILY SUPPLEMENT 10/25/21 citalopram 20 mg tablet 20 mg PO QHS DEPRESSION 10/25/21 divalproex 500 mg tablet,extended release 24 hr 1,000 mg PO QHS SEIZURES 10/25/21 divalproex 500 mg tablet,extended release 24 hr 500 mg PO DAILY SEIZURES 10/25/21 docusate sodium 100 mg capsule 100 mg PO BID STOOL SOFTNER 10/25/21 fenofibrate 54 mg tablet 54 mg PO DAILY CHOLESTEROL 10/25/21 latanoprost 0.005 % eye drops 1 drp EACH EYE QHS GLUCOMA 10/25/21 olanzapine 10 mg tablet 10 mg PO QHS MOOD 10/25/21 olanzapine 20 mg tablet 20 mg PO QHS MOOD 10/25/21 oxcarbazepine 300 mg tablet 300 mg PO BID SEZIURES 10/25/21 tamsulosin 0.4 mg capsule 0.4 mg PO QHS PROSTATE 10/25/21 aspirin 81 mg chewable tablet 81 mg PO BREAKFAST #0 tabs 11/01/21 atorvastatin 80 mg tablet 80 mg PO QHS #0 tabs 11/01/21 polyethylene glycol 3350 17 gram oral powder packet 17 g PO DAILY #0 ea 11/01/21 Hospital Course Operations None Procedures 2-D Echocardiogram and - (MRA head and neck/MRI brain) Summary of Care Provided Minutes Spent on Discharge: 39 Hospital Course: Mr. Palacio is a 60-year-old white male who presented to the emergency department at [facility] on 10/25/2021 with right-sided weakness that had been ongoing for approximately 2 days. The patient had a known history of stroke approximately 2 to 3 years ago with minimal right-sided weakness. He had been residing at an assisted living facility. In addition to the right-sided knee weakness he felt he had some slurred speech and some right facial droop. He denied any tingling or numbness. Vital signs emergency department showed a blood pressure of 156/78, heart rate 62, respiratory rate of 16, temperature of 98.6 and an oxygen saturation of 98% on room air. His CBC shows chronic leukopenia and thrombocytopenia both of which were stable throughout his hospital course. His INR was 1.2. His BMP was unremarkable on admission. A CT of his brain was performed and showed chronic involutional changes. His chest x-ray shows a right focal lower lobe scarring versus infiltrate. The patient was admitted to the PCU and unfortunately not a tPA candidate given the onset of his symptoms being 2 to 3 days prior to presentation. His initial NIH was 3. An echocardiogram was performed and showed an EF of 55 to 60% with a normal LV systolic function and a negative bubble study. MRI showed no acute abnormalities. 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 The MRA of his neck showed was negative for any disease. Neurology saw the patient and recommended that we continue his home Eliquis, increase his statin dose to 80 mg and continue his home aspirin. He was evaluated by physical and Occupational Therapy during his hospitalization and they recommended treatment in a skilled facility. The patient chose [facility] and was approved for discharge on 11/01/2021. Discharge diagnoses: TIA Chronic leukopenia Chronic thrombocytopenia Hypertension PAF Constipation BPH Urinary retention-resolved Hyperlipidemia Seizure disorder Schizoaffective disorder Physical Exam Narrative Continued urinary issues. Patient still has not had a bowel movement yesterday however he feels like he is having some gas today and it may be pending. Const alert, oriented x3, no apparent distress and well nourished Constitutional Narrative: Obese white male sitting up in bed, appears comfortable and nontoxic, speech is slightly dysarthric which apparently is his baseline, watching television General Appearance: cooperative, comfortable, well kempt and well developed Orientation / Consciousness: awake Exam Limitations: no limitations Nutritional Appearance: obese HEENT normocephalic, head/scalp atraumatic, hearing grossly normal bilaterally and moist oral mucous membranes HEENT Narrative: Dentition is poor, Mallampati is 2, no thrush Eyes PERRL, EOMs intact bilaterally and conjunctivae normal Eyes Narrative: No scleral icterus Neck no lymphadenopathy, supple, no JVD and no carotid bruits Neck Narrative: Acute midline, no thyroid enlargement Resp normal respiratory effort, no retractions, no use of accessory muscles and clear to auscultation bilaterally Auscultation: Negative for crackles, rales, rhonchi or wheezes Cardio regular rate, regular rhythm, S1 normal heart sound, S2 normal heart sound, no murmurs, no rub, no gallops, no clicks and no JVD GI normal to inspection, nondistended, normoactive bowel sounds, soft to palpation, non-tender and non-distended; Negative for hepatosplenomegaly Extremity no clubbing, cyanosis or edema Extremity Narrative: 2+ pedal pulses Skin no rashes or lesions noted, no wounds, skin turgor normal and no jaundice Neuro oriented x3, CN's II-XII intact bilaterally, moves all extremities and no focal motor deficits Neuro Narrative: no generalized weakness Sensorium / Orientation: awake and alert Speech: Negative for speech normal Psych affect normal Psych Narrative: Very pleasant and appropriately interactive Weight / BMI Weight Weight: 107.6 kg Body Mass Index (BMI) 29.2 ABG / Lab / Microbiology Data Result Diagrams: 11/01/21 04:10 11/01/21 04:10 Laboratory: Laboratory Results - last 24 hr 10/31/21 20:04: Sodium 129 L, Potassium 4.1, Chloride 96 L, Carbon Dioxide 26.0, Anion Gap 7, BUN 18, Creatinine 0.78, Estim Creat Clear Calc 115.63, Est GFR (MDRD) Af Amer 131, Est GFR (MDRD) Non-Af 108, BUN/Creatinine Ratio 23.2 H, Glucose 101, Calcium 9.2 11/01/21 04:10: WBC 4.7, RBC 3.71 L, Hgb 11.5 L, Hct 34.2 L, MCV 92.2, MCH 31.0, MCHC 33.6, RDW Std Deviation 43.2, RDW Coeff of [place] 12.8, Plt Count 105 L, MPV 9.5, Immature Gran % (Auto) 1.100 H, Neut % (Auto) 42.8 L, Lymph % (Auto) 39.3, [place] % (Auto) 11.6 H, Eos % (Auto) 4.1, Baso % (Auto) 1.1 H, Absolute Neuts (auto) 2.0, Absolute Lymphs (auto) 1.83, Nucleated RBC % 0 11/01/21 04:10: Sodium 133 L, Potassium 4.0, Chloride 100, Carbon Dioxide 26.0, Anion Gap 7, BUN 15, Creatinine 0.70, Estim Creat Clear Calc 128.85, Est GFR (MDRD) Af Amer 147, Est GFR (MDRD) Non-Af 122, BUN/Creatinine Ratio 21.4 H, Glucose 78, Calcium 9.0 Microbiology: Microbiology 11/01/21 09:42 Nasal Secretion SARS-CoV-2 Antigen (Rapid) - Final Meaningful Use Info Meaningful Use Diagnoses (Choose all that apply): None applicable Discharge Plan Admission Admit Date/Time: 10/25/21 14:43 Primary Reason for Your Visit: TIA Attending Provider: Fern Marti Primary Care Provider: Tevin Prather Consulting Providers: Flora Mtz Discharge Orders/Prescriptions Prescriptions: New atorvastatin 80 mg Tablet 80 mg PO QHS Qty: 0 0RF polyethylene glycol 3350 17 gram Powder In Packet 17 g PO DAILY Qty: 0 0RF aspirin 81 mg Tablet,Chewable 81 mg PO BREAKFAST Qty: 0 0RF Continued latanoprost 0.005 % drops 1 drp EACH EYE QHS olanzapine 10 mg tablet 10 mg PO QHS Label Comments: PER LONG-TERM MAR TAKES 1 (20 MG) AND 1 (10 MG) TABLET DAILY @ QHS TO MAKE DAILY TOTAL DOSE OF 30 MG. oxcarbazepine 300 mg tablet 300 mg PO BID Label Comments: PER LONG-TERM MAR TAKES BID @ 0800 AND 1800 amlodipine 5 mg tablet 5 mg PO DAILY acetaminophen [Arthritis Pain Relief (acetam)] 650 mg tablet extended release 1,300 mg PO BID citalopram 20 mg tablet 20 mg PO QHS tamsulosin 0.4 mg capsule 0.4 mg PO QHS divalproex 500 mg tablet extended release 24 hr 500 mg PO DAILY divalproex 500 mg tablet extended release 24 hr 1,000 mg PO QHS benztropine 1 mg tablet 1 mg PO BID docusate sodium 100 mg capsule 100 mg PO BID olanzapine 20 mg tablet 20 mg PO QHS Label Comments: PER LONG-TERM MAR TAKES 1 (20 MG) AND 1 (10 MG) TABLET DAILY @ QHS TO MAKE DAILY TOTAL DOSE OF 30 MG. cholecalciferol (vitamin D3) 50 mcg (2,000 unit) tablet 50 mcg PO DAILY fenofibrate 54 mg tablet 54 mg PO DAILY Eliquis 5 mg tablet 5 mg PO BID Discontinued atorvastatin 40 mg tablet 40 mg PO QHS Referrals / Follow Up: Tevin Prather MD [Primary Care Provider] - Within 2 Weeks Disposition Disposition (needs filled in before D/C Order can be placed): [facility] Facility Charges/Coding Visit Charges Inpatient E&M: 40487 SNF Disch >30 Min
--- NOTE | 2021-11-01 13:00 | TREXTCAR_ITS ---
Diet Diet Order/Speech Therapy: 10/31/21 15:56 Diet: Cardiac: Calorie-Controlled Food consistency:: Easy to Chew Liquid Consistency:: Regular/Thin Is pt able to select menu?: Yes Diet Comments: straws ok How many daily calories?: 2200 calorie Routine Orders/Code Status Suppository Type: Dulcolax 10mg O2 Frequency: PRN Keep PO Greater than or Equal to (%): 92 Code Status: Full Code Therapies Physical Therapy: Eval and Treat Occupational Therapy: Eval and Treat Speech Therapy: Eval and Treat Problem/Diagnosis (1) Facial droop: Status: Acute Code(s): R29.810 - Facial weakness (2) TIA (transient ischemic attack): Status: Acute Code(s): G45.9 - Transient cerebral ischemic attack, unspecified Plan Suspected TIA -All imaging is negative for any acute findings -Echocardiogram shows an EF of 55 to 60% with a negative bubble study -No tPA given on admission -[facility] neurology has evaluated the patient and agrees with current changes in treatment to include intensifying his statin dosing -Continue aspirin -Continue Eliquis for PAF -Continue PT and OT -Still awaiting pre-CERT for skilled facility placement plan is for discharge to [place] once pre-CERT is obtained Mild chronic leukopenia/thrombocytopenia -Leukopenia has resolved -Thrombocytopenia stable and chronic Hypertension -Continue amlodipine Constipation -Resolved BPH with urinary retention -Continue Flomax -Urinary retention has been resolved Hyperlipidemia -Continue intensified statin for pleiotropic effects -Continue fenofibrate Seizure disorder -Continue valproic acid -Continue Trileptal PAF -Patient remains in normal sinus rhythm -Continue apixaban 5 mg twice daily Schizoaffective disorder -Continue Cogentin -Continue citalopram -Continue olanzapine DVT prophylaxis -Fully anticoagulated with apixaban CODE STATUS -Full code Allergies/Procedures Done in Hospital Allergies No Known Allergies Allergy (Verified 10/25/21 13:58) Procedures: 2-D Echocardiogram and - Type of Care/Length of Stay Estimated LOS: Convalescent Care Less Than 30 days Type of Care Needed: Skilled Rehab Potential: Good Prognosis: Good Additional Orders/Day of Discharge Day of Discharge: 11/01/21 Dietary and Speech Recommendations Dietitian Recommendations/Changes: 2200 kcal Cardiac -Heart Healthy Discharge Plan Admission Admit Date/Time: 10/25/21 14:43 Primary Reason for Your Visit: TIA Attending Provider: Fern Marti Primary Care Provider: Tevin Prather Consulting Providers: Flora Mtz Discharge Orders/Prescriptions Prescriptions: New atorvastatin 80 mg Tablet 80 mg PO QHS Qty: 0 0RF polyethylene glycol 3350 17 gram Powder In Packet 17 g PO DAILY Qty: 0 0RF aspirin 81 mg Tablet,Chewable 81 mg PO BREAKFAST Qty: 0 0RF Continued latanoprost 0.005 % drops 1 drp EACH EYE QHS olanzapine 10 mg tablet 10 mg PO QHS Label Comments: PER [facility] MAR TAKES 1 (20 MG) AND 1 (10 MG) TABLET DAILY @ QHS TO MAKE DAILY TOTAL DOSE OF 30 MG. oxcarbazepine 300 mg tablet 300 mg PO BID Label Comments: PER [facility] MAR TAKES BID @ 0800 AND 1800 amlodipine 5 mg tablet 5 mg PO DAILY acetaminophen [Arthritis Pain Relief (acetam)] 650 mg tablet extended release 1,300 mg PO BID citalopram 20 mg tablet 20 mg PO QHS tamsulosin 0.4 mg capsule 0.4 mg PO QHS divalproex 500 mg tablet extended release 24 hr 500 mg PO DAILY divalproex 500 mg tablet extended release 24 hr 1,000 mg PO QHS benztropine 1 mg tablet 1 mg PO BID docusate sodium 100 mg capsule 100 mg PO BID olanzapine 20 mg tablet 20 mg PO QHS Label Comments: PER [facility] MAR TAKES 1 (20 MG) AND 1 (10 MG) TABLET DAILY @ QHS TO MAKE DAILY TOTAL DOSE OF 30 MG. cholecalciferol (vitamin D3) 50 mcg (2,000 unit) tablet 50 mcg PO DAILY fenofibrate 54 mg tablet 54 mg PO DAILY Eliquis 5 mg tablet 5 mg PO BID Discontinued atorvastatin 40 mg tablet 40 mg PO QHS Referrals / Follow Up: Tevin Prather MD [Primary Care Provider] - Within 2 Weeks Disposition Disposition (needs filled in before D/C Order can be placed): Long-Term Facility
--- NOTE | 2021-11-01 13:34 | CASEMGMT ---
MASOUD arranged for patient to get picked up at 230p via [employer]. MASOUD e-mailed orders, negative COVID, and brick picker time to [place]. MASOUD notified RN, foundry melt supervisor, and patient. MASOUD also notified patient's senior caredirector of home care hospice, Anne as well as patient's guardian Mateo (via his medical office representative). PASRR completed on HENS as patient is observation status. Plan: d/c to [facility] under skilled level of care on a PASRR. [facility] transported patient via [employer] [facility]. Gracie GIBBS
[2021-11-01 13:44] VITALS: PULSE 64
== END 2021-11-01 12:59 | disposition skilled nursing facility (03) ==
LOC: ED 15:01 → PCU 15:09
PROVIDERS: Admitting Provider Internal Medicine; Emergency Provider Emergency Medicine; PCP Family Medicine; Visit Provider Internal Medicine
DX: G45.9 Transient cerebral ischemic attack, unspecified (principal); F25.9 Schizoaffective disorder, unspecified; I69.351 Hemiplegia and hemiparesis following cerebral infarction affecting right dominant side; F31.9 Bipolar disorder, unspecified; I48.0 Paroxysmal atrial fibrillation; G40.909 Epilepsy, unspecified, not intractable, without status epilepticus; D69.6 Thrombocytopenia, unspecified; E11.9 Type 2 diabetes mellitus without complications; I10 Essential (primary) hypertension; Z79.01 Long term (current) use of anticoagulants; K59.00 Constipation, unspecified; E78.5 Hyperlipidemia, unspecified; D72.819 Decreased white blood cell count, unspecified; R47.81 Slurred speech; R33.8 Other retention of urine; R53.1 Weakness; N40.1 Benign prostatic hyperplasia with lower urinary tract symptoms; R29.810 Facial weakness; Z79.899 Other long term (current) drug therapy; R29.708 NIHSS score 8; D64.9 Anemia, unspecified
CPT/HCPCS: 36415; 70450; 70544; 70549; 70551; 71045; 80048; 80053; 80061; 83036; 84484; 85025; 85610; 85730; 87426; 92526; 92610; 93005; 93306; 94762; 96361; 96365; 96366; 96367; 97110; 97116; 97162; 97165; 97530; 97535; 99218; 99285; A9575; J7030; J7050; Q9957; A4216; C8929; G0378